=== PATIENT | female | born 1960 | race Caucasian/White ===

== ENCOUNTER 2016-05-30 15:36 | Emergency (ER) | payer OTHER ==
[~2016-05-30] VITALS: Ht 167.6 cm; Wt 88.5 kg
[~2016-05-30 15:36] MED LIST: ACET-819 PO; ALPR.25T PO; AMOX500C2 PO; ASP81TEC PO; ATRV10T PO; DIVA250T2 PO; ESCI5TAB PO; ESTROGEN; FRS325T PO; GFCD10B PO; IBP200T PO; METO25TA PO; OMEP1CAP10 PO; OMEP20CA12 PO; OMEP20CA6 PO; ONDA4TAB2 PO; TRAM50TA2 PO
--- NOTE | 2016-05-30 15:41 | ED Upper Extremity ---
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 Onset: just prior to arrival Severity: moderate Pain/Injury Location: left wrist Method of Injury: fell Modifying Factors: Worse With Movement Allergies and Home Medications Allergies Coded Allergies: oxcarbazepine (Unverified Allergy, Unknown, 08/27/10) Phenytoin Sodium Extended (Unverified Allergy, 08/22/10) Sulfa(Sulfonamide Antibiotics) (Unverified Allergy, 08/22/10) Tetracycline (Unverified Allergy, 08/22/10) phenytoin sodium (Unverified Allergy, 08/22/10) Codeine (Unverified Adverse Reaction, Intermediate, TACHYCARDIA, "MY HEART RACES", 08/27/10) Home Medications Acetaminophen 500 Mg Tablet 500 MG PO BID (Reported) Alprazolam 0.25 Mg Tablet 0.25 MG PO Q8H PRN PRN (Reported) prn anxiety Aspirin 81 Mg Tabec 81 MG PO mon, wed, frid (Reported) Atorvastatin Calcium 10 Mg Tablet 10 MG PO DAILY (Reported) Divalproex Sodium 250 Mg Tablet.dr 250 MG PO DAILY (Reported) Escitalopram Oxalate 5 Mg Tablet 5 MG PO HS (Reported) Metoprolol Succinate 25 Mg Tab.sr.24h 25 MG PO BID (Reported) Omeprazole 20 Mg Capsule.dr 20 CAP PO HS (Reported) Constitutional: see HPI EENTM: see HPI Respiratory: no symptoms reported Cardiovascular: no symptoms reported Genitourinary: no symptoms reported Musculoskeletal: see HPI joint swelling Skin: no symptoms reported Psychiatric/Neurological: No Symptoms Reported Past Tyaenhe-Ihetjn-Hoymkd Hx Seasonal Allergies Seasonal Allergies: No Surgeries HX Surgeries: Yes Respiratory Hx Respiratory Disorders: No (BENIGN LUNG NODULE) Cardiovascular Hx Cardiac Disorders: Yes (MITRAL VALVE PROLAPSE) Neurological Hx Neurological Disorders: No Reproductive System Hx Reproductive Disorders: No Sexually Transmitted Disease: No 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 History: Hysterectomy Genitourinary Hx Genitourinary Disorders: Yes Genitourinary Disorders: Kidney Stones Gastrointestinal Hx Gastrointestinal Disorders: Yes Gastrointestinal Disorders: Gastroesophageal Reflux Musculoskeletal Hx Musculoskeletal Disorders: Yes (CHRONIC PAIN IN HER FEET) Musculoskeletal Disorders: Arthritis Endocrine Hx Endocrine Disorders: No HEENT HX ENT Disorders: No Cancer Hx Cancer: No Psychosocial Hx Psychiatric Problems: No Integumentary HX Skin/Integumentary Disorder: No Blood Transfusions Hx Blood Disorders: No Family Medical History Significant Family History: Cancer Physical Exam Vital Signs Vital Sign - Last 12Hours 05/30/16 15:36 Temp 98.8 Pulse 71 Resp 18 B/P 151/79 Pulse Ox 96 O2 Delivery Room Air Capillary Refill : General Appearance: WD/WN no apparent distress HEENT: PERRL/EOMI normal ENT inspection Neck: non-tender full range of motion Respiratory: no respiratory distress no accessory muscle use Shoulder: normal inspection non-tender Elbow/Forearm: normal inspection, non-tender, Left Wrist: Yes limited ROM, Yes pain, Yes soft tissue tenderness Hand: normal inspection, non-tender, Left Neurologic/Tendon: normal sensation normal motor functions normal tendon functions Neurologic/Psychiatric: alert normal mood/affect oriented x 3 Skin: normal color warm/dry Progress/Results/Core Measures Results/Orders My Orders Orders-ELYSSA NELSON APRN Wrist, Left, 3 Views Or More (05/30/16 15:40) Vital Signs/I&O Vital Sign - Last 12Hours 05/30/16 15:36 Temp 98.8 Pulse 71 Resp 18 B/P 151/79 Pulse Ox 96 O2 Delivery Room Air Diagnostic Imaging Diagonstic Imaging: Xray Comments NAME: JENIFER KOVACS [facility] REC#: [id number] PT STATUS: REG ER : 1960 PHYSICIAN: ELYSSA NELSON APRN ADMIT DATE: 05/30/16/ER Draft Date of Exam:05/30/16 WRIST, LEFT, 3 VIEWS OR MORE INDICATION: Left wrist pain. EXAMINATION: Multiple views of the left wrist were obtained. FINDINGS: Radiocarpal joint is in good alignment. Articulating surfaces are smooth with good preservation of joint space. Carpal bones show no subluxation or fracture. The ulnar styloid is intact. IMPRESSION: Normal left wrist. Dictated on workstation # [id number] Dict: 05/30/16 1554 Trans: 05/30/16 1559 [facility] [id number] Interpreted by: GUSTAVO BOX MD Electronically signed by: Departure Impression Impression: Primary Impression: Wrist sprain Qualified Code: S63.502A - Unspecified sprain of left wrist, initial encounter Disposition: ADMITTED INPATIENT Condition: Stable Departure-Patient Inst. Decision time for Depature: 16:03 Referrals: JIM DUNLAP MD (PCP/Family) Primary Care Physician Patient Instructions: Wrist Sprain (DC) Add. Discharge Instructions: 1. Wear splint as needed for the next 2-3 days in addition to icing it, tylenol and motrin. Radiologist has reviewed your xray and it shows no fractures or dislocations. Return to ER for any worsening or follow up with your doctor next week for further evaluation if you're having persistent pain. ELYSSA NELSON APRN May 30, 2016 15:41
--- OUTSIDE RECORDS SUMMARY | 2016-05-30 15:41 | XMS REPORT | Continuity of Care Document ---
Author Author [facility] Organization [facility] Address Unknown Phone Unavailable Care Team Providers Care Supervisor [employer] Name Role Phone No Pcp, Na PCP Unavailable Source Comments Some departments are not documenting in the electronic medical record. If you do not see the information that you expected, contact Release of Information in the Health Information Management department at [phone] for further assistance in locating additional records.[facility] Active Allergies and Adverse Reactions Allergen Noted Date Severity Reactions Comments Caffeine 10/10/2014 Low SEE COMMENTS Makes the pt heart skip a beat Codeine 12/15/2002 High Allergy recorded in SMS: CODIENE~Reactions: HIVES Phenytoin Sodium Extended 12/15/2002 High Allergy recorded in SMS: Dilantin~Reactions: ANAPHYLAXIS Sulfa (Sulfonamide 12/15/2002 High Allergy recorded in SMS: Antibiotics) Sulfa~Reactions: ANAPHYLAXIS Tetracycline 12/15/2002 High Allergy recorded in SMS: TETRACYCLINE~Reactions: HIVES Current Medications Prescription Sig. Disp. Refills Start End Date Status Date metoprolol (LOPRESSOR) 50 Take 50 mg by mouth twice Active mg tablet daily. OMEPRAZOLE MAGNESIUM Take by mouth daily. Active (PRILOSEC OTC PO) escitalopram (LEXAPRO) 5 Take 5 mg by mouth daily. Active mg tablet aspirin EC 81 mg tablet Take 81 mg by mouth every Active 48 hours. ALPRAZOLAM (XANAX PO) Take by mouth as Needed. Active divalproex ER (DEPAKOTE TAKE 1 TABLET BY MOUTH 90 Tab 5 11/08/19 Active ER) 250 mg tablet THREE TIMES DAILY 16 Active Problems Not on file Social History Tobacco Use Types Packs/Day Years Used Date Never Smoker Smokeless Tobacco: Never Used Alcohol Use Drinks/Week oz/Week Comments Yes 0 Standard 0.0 rare drinks or equivalent Last Filed Vital Signs Vital Sign Reading Time Taken Blood Pressure 138/78 10/10/2014 8:26 AM CDT Pulse 63 10/10/2014 8:26 AM CDT Temperature - - Respiratory Rate - - Height 1.676 m (5' 6") 10/10/2014 8:24 AM CDT Weight 87.544 kg (193 lb) 10/10/2014 8:24 AM CDT Body Mass Index 31.17 10/10/2014 8:24 AM CDT Oxygen Saturation - - Plan of Care Date Type Specialty Providers Description 06/07/2016 Appointment Neurology Health Maintenance Due Date Last Done Comments Hepatitis C Screening 1960 Physical (Comprehensive) 1965 Exam Pertussis Vaccine 1969 Tetanus Vaccine 08/20/1975 Cervical Cancer Screening 08/20/1979 Breast Cancer Screening 1998 Colorectal Cancer 2008 Screening Influenza Vaccine 12/28/2015 Results from Last 3 Months Not on file
--- NOTE | 2016-05-30 15:59 | Diagnostic Imaging Report ---
INDICATION: Left wrist pain. EXAMINATION: Multiple views of the left wrist were obtained. FINDINGS: Radiocarpal joint is in good alignment. Articulating surfaces are smooth with good preservation of joint space. Carpal bones show no subluxation or fracture. The ulnar styloid is intact. IMPRESSION: Normal left wrist. Dictated by: Dictated on workstation # [id number]
[2016-05-30 16:23] VITALS: BP 146/79
== END 2016-05-30 16:27 | disposition home or self-care (01) ==
LOC: EDUNIT# 15:36 → ER 15:37
DX: S63.502A Unspecified sprain of left wrist, initial encounter (principal); W01.0XXA Fall on same level from slipping, tripping and stumbling without subsequent striking against object, initial encounter; Y92.59 Other trade areas as the place of occurrence of the external cause; Y99.8 Other external cause status
CPT/HCPCS: 73110; 99283

== ENCOUNTER 2017-02-17 18:02 | Emergency (ER) | payer OTHER ==
[~2017-02-17] VITALS: Ht 167.6 cm; Wt 88.5 kg
--- OUTSIDE RECORDS SUMMARY | 2017-02-17 18:07 | XMS REPORT | Clinical Summary ---
Author Author [facility] Organization [facility] Address Unknown Phone Unavailable Care Team Providers Care Manager Department Name Role Phone PCP Unavailable Source Comments Some departments are not documenting in the electronic medical record. If you do not see the information that you expected, contact Release of Information in the Health Information Management department at [phone] for further assistance in locating additional records.[facility] Allergies Active Allergy Reactions Severity Noted Date Comments Codeine High 12/15/2002 Allergy recorded in SMS: CODIENE~Reactions: HIVES Phenytoin Sodium Extended High 12/15/2002 Allergy recorded in SMS: Dilantin~Reactions: ANAPHYLAXIS Sulfa (Sulfonamide High 12/15/2002 Allergy recorded in SMS: Antibiotics) Sulfa~Reactions: ANAPHYLAXIS Tetracycline High 12/15/2002 Allergy recorded in SMS: TETRACYCLINE~Reactions: HIVES Caffeine SEE COMMENTS Low 10/10/2014 Makes the pt heart skip a beat Current Medications Prescription Sig. Disp. Refills Start [...] PO) Take by mouth as Needed. Active ATORVASTATIN CALCIUM Take 10 mg by mouth Active (LIPITOR PO) daily. Takes 1/2 tab daily divalproex ER (DEPAKOTE Take 1 Tab by mouth twice 60 Tab 5 09/12/19 Active ER) 250 mg ER tablet daily. 17 Active Problems Problem Noted Date Nonintractable generalized idiopathic epilepsy without status epilepticus ([facility]) Social History Tobacco Use Types Packs/Day Years Used Date Never Smoker Smokeless Tobacco: Never Used Alcohol Use Drinks/Week oz/Week Comments Yes 0 Standard 0.0 rare drinks or equivalent Sex Assigned at Date Recorded Not on file Last Filed Vital Signs Vital Sign Reading Time Taken Blood Pressure 137/73 06/07/2016 2:40 PM [employer] SOFTWARE [employer]INE[employer] Pulse 67 06/07/2016 2:40 PM [employer] SOFTWARE [employer] Temperature - - Respiratory Rate - - Oxygen Saturation - - Inhaled Oxygen - - Concentration Weight 90.7 kg (200 lb) 06/07/2016 2:40 PM [employer] SOFTWARE [employer] Height 167.6 cm (5' 6") 06/07/2016 2:40 PM [employer] SOFTWARE [employer] Body Mass Index 32.28 06/07/2016 2:40 PM [employer] SOFTWARE ENGINE[employer] Plan of Treatment Health Maintenance Due Date Last Done Comments HEPATITIS C SCREENING 1960 PHYSICAL (COMPREHENSIVE) 1965 EXAM PERTUSSIS VACCINE 1969 TETANUS VACCINE 08/20/1975 CERVICAL CANCER SCREENING 1988 BREAST CANCER SCREENING 1998 COLORECTAL CANCER 2008 SCREENING INFLUENZA VACCINE 11/26/2016 Results Not on filefrom Last 3 Months
--- OUTSIDE RECORDS SUMMARY | 2017-02-17 18:07 | XMS REPORT | Continuity of Care Document ---
Author Author [facility] Organization [facility] Address Unknown Phone Unavailable Allergies Active Description Code Type Severity Reaction Onset Reported/Identified Relationship to Patient Clinical Status Yes codeine [id number] Drug Allergy Moderate TACHYCARDIA, "M 08/27/2010 Yes oxcarbazepine [id number] Drug Allergy Unknown N/A 08/27/2010 Yes phenytoin sodium [id number] Drug Allergy Unknown N/A 06/07/2016 Yes Phenytoin Sodium Extended [id number] Drug Allergy Unknown N /A 06/07/2016 Yes Sulfa (Sulfonamide Antibiotics) [id number] Drug Allergy Unknown N/A 06/07/2016 Yes tetracycline [id number] Drug Allergy Unknown N/A 06/07/2016 Medications Problems Date Dx Coded Attending Type Code Diagnosis Diagnosed By 04/19/2015 LAURA TAY, FCO [place] Ot V76.12 04/19/2015 FABI TAY, JIM Sapp Ot 733.90 04/19/2015 FABI TAY, JIM Sapp Ot V58.69 04/19/2015 FABI TAY, JIM Sapp Ot V58.83 04/19/2015 LAURA TAY, FCO [place] Ot V76.12 04/19/2015 LAURA TAY, FCO [place] Ot Z12.31 05/18/2015 LAURA TAY, FCO [place] Ot Z12.31 06/13/2015 LAURA TAY, FCO [place] Ot Z12.31 06/13/2015 LAURA TAY, FCO [place] Ot V76.12 06/13/2015 FABI TAY, JIM Sapp Ot 733.90 06/13/2015 FABI TAY, JIM Sapp Ot V58.69 06/13/2015 FABI TAY, JIM Sapp Ot V58.83 06/13/2015 LAURA TAY, FCO [place] Ot V76.12 06/13/2015 LAURA TAY, FCO [place] Ot Z12.31 08/10/2015 FCO SANCHEZ MD Ot V76.12 08/10/2015 JIM DUNLAP MD Ot 733.90 08/10/2015 JIM DUNLAP MD Ot V58.69 08/10/2015 JIM DUNLAP MD Ot V58.83 08/10/2015 FCO SANCHEZ MD Ot V76.12 08/10/2015 FCO SANCHEZ MD Ot Z12.31 08/24/2015 FCO SANCHEZ MD Ot V76.12 OTH SCREEN MAMMO-MALIGN NEOPLASM OF BRITT 08/24/2015 JIM DUNLAP MD Ot 733.90 BONE CARTILAGE DIS NOS 08/24/2015 JIM DUNLAP MD, Ot V58.69 OTH MED,LT,CURRENT USE 08/24/2015 JIM DUNLAP MD Ot V58.83 ENCOUNTER FOR THERAPEUTIC DRUG MONITORIN 08/24/2015 FCO SANCHEZ MD Ot V76.12 OTH SCREEN MAMMO-MALIGN NEOPLASM OF BRITT 08/24/2015 FCO SANCHEZ MD Ot Z12.31 ENCNTR SCREEN MAMMOGRAM FOR MALIGNANT NE 10/18/2015 JIM DUNLAP MD Ot R00.2 PALPITATIONS 11/22/2015 JIM DUNLAP MD Ot R00.2 PALPITATIONS 03/27/2016 FCO SANCHEZ MD Ot V76.12 OTH SCREEN MAMMO-MALIGN NEOPLASM OF BRITT 03/27/2016 JIM DUNLAP MD Ot 733.90 BONE CARTILAGE DIS NOS 03/27/2016 JIM DUNLAP MD Ot V58.69 OTH MED,LT,CURRENT USE 03/27/2016 JIM DUNLAP MD Ot V58.83 ENCOUNTER FOR THERAPEUTIC DRUG MONITORIN 03/27/2016 FCO SANCHEZ MD Ot V76.12 OTH SCREEN MAMMO-MALIGN NEOPLASM OF BRITT 03/27/2016 FCO SANCHEZ MD Ot Z12.31 ENCNTR SCREEN MAMMOGRAM FOR MALIGNANT NE 03/27/2016 JIM DUNLAP MD Ot R00.2 PALPITATIONS 03/28/2016 FCO SANCHEZ MD Ot Z12.31 ENCNTR SCREEN MAMMOGRAM FOR MALIGNANT NE 05/30/2016 FCO SANCHEZ MD Ot V76.12 OTH SCREEN MAMMO-MALIGN NEOPLASM OF BRITT 05/30/2016 JIM DUNLAP MD Ot 733.90 BONE CARTILAGE DIS NOS 05/30/2016 JIM DUNLAP MD Ot V58.69 OTH MED,LT,CURRENT USE 05/30/2016 JIM DUNLAP MD Ot V58.83 ENCOUNTER FOR THERAPEUTIC DRUG MONITORIN 05/30/2016 FCO SANCHEZ MD Ot V76.12 OTH SCREEN MAMMO-MALIGN NEOPLASM OF BRITT 05/30/2016 FCO SANCHEZ MD Ot Z12.31 ENCNTR SCREEN MAMMOGRAM FOR MALIGNANT NE 05/30/2016 JIM DUNLAP MD Ot R00.2 PALPITATIONS 05/30/2016 FCO SANCHEZ MD, Ot Z12.31 ENCNTR SCREEN MAMMOGRAM FOR MALIGNANT NE 06/05/2016 ELYSSA NELSON APRN Ot S63.502A UNSPECIFIED SPRAIN OF LEFT WRIST, INITIA 06/05/2016 ELYSSA NELSON APRN Ot S69.92XA UNSP INJURY OF LEFT WRIST, HAND AND FING 06/05/2016 ELYSSA NELSON APRN Ot W01.0XXA FALL SAME LEV FROM SLIP/TRIP W/O STRIKE 06/05/2016 ELYSSA NELSON APRN Ot Y92.[address] 06/05/2016 ELYSSA NELSON APRN Ot Y99.8 OTHER EXTERNAL CAUSE STATUS 06/07/2016 JIM DUNLAP MD Ot R00.2 PALPITATIONS Procedures Results Encounters ACCT No. Visit Date/Time Discharge Status Pt. Type Provider Facility Loc./Unit Complaint [id number] 05/30/2016 15:37:00 2016 16:27:00 DIS Outpatient ELYSSA NELSON APRN [facility] ER LEFT WRIST PAIN FROM INJ [id number] 03/27/2016 08:32:00 2015 23:59:59 CLS Outpatient FCO SANCHEZ MD [facility] RAD SCREENING [id number] 11/23/2015 15:30:00 2015 23:59:59 CLS Preadmit JIM DUNLAP MD [facility] CARD PALPITATIONS [id number] 08/24/2015 15:02:00 2015 00:01:00 DIS Outpatient JIM DUNLAP MD [facility] CARD PALPITATIONS [id number] 03/13/2015 14:24:00 2014 23:59:59 CLS Outpatient FCO SANCHEZ MD [facility] RAD SCREENING [id number] 03/08/2014 08:41:00 2013 23:59:59 CLS Outpatient FCO SANCHEZ MD [facility] RAD SCREENING [id number] 04/23/2013 09:52:00 2012 23:59:59 CLS Outpatient JIM DUNLAP MD [facility] RAD HUMAN RESOURCES BENEFITS COORDINATOR MEDICATION USE [id number] 03/03/2013 15:08:00 2012 23:59:59 CLS Outpatient FCO SANCHEZ MD [facility] RAD SCREENING
[2017-02-17 19:48] LABS: BILIRUBIN,URINE NEGATIVE (NEGATIVE); KETONES,URINE 1+ (NEGATIVE); LEUKOCYTE ESTERASE ,URINE 3+ (NEGATIVE); NITRITE,URINE NEGATIVE (NEGATIVE); PH,URINE 6 (5-9); PROTEIN,URINE 4+ (NEGATIVE); SQUAMOUS EPITHELIAL CELL,UR 0-2 /HPF; UROBILINOGEN,URINE NORMAL (NORMAL); WBC,URINE 50-100 /HPF
[2017-02-17] MEDS ORDERED: NS IV 1000 ML 1,000 ML IV ONE (20:15)
[2017-02-17] MEDS ORDERED: cefTRIAXone INJECTION 1,000 MG in NS (IVPB) 50 ML IV ONE (20:30)
[2017-02-17 20:35] LABS: BASOPHILS % (AUTO) 0 % (0-10); EOSINOPHILS # (AUTO) 0.1 10^3/uL (0.0-0.3); EOSINOPHILS % (AUTO) 1 % (0-10); LYMPHOCYTES # (AUTO) 2.3 X 10^3 (1.0-4.0); LYMPHOCYTES % (AUTO) 17 % (12-44); MEAN CORPUSCULAR HEMOGLOBIN 30 PG (25-34); MEAN CORPUSCULAR HGB CONC 32 G/DL (32-36); MEAN CORPUSCULAR VOLUME 93 FL (80-99); MEAN PLATELET VOLUME 10.5 FL (7.4-10.4); MONOCYTES % (AUTO) 8 % (0-12); NEUTROPHILS # (AUTO) 9.8 X 10^3 (1.8-7.8); NEUTROPHILS % (AUTO) 74 % (42-75); PLATELET COUNT 229 10^3/uL (130-400); RED BLOOD COUNT 4.45 10^6/uL (4.35-5.85); RED CELL DISTRIBUTION WIDTH 13.1 % (10.0-14.5); WHITE BLOOD COUNT 13.2 10^3/uL (4.3-11.0)
[2017-02-17 20:52] LABS: ALANINE AMINOTRANSFERASE 17 U/L (0-55); ALBUMIN 4.1 GM/DL (3.2-4.5); ANION GAP 10 MMOL/L (5-14); ASPARTATE AMINO TRANSFERASE 14 U/L (5-34); BILIRUBIN,TOTAL 0.4 MG/DL (0.1-1.0); BLOOD UREA NITROGEN 13 MG/DL (7-18); BUN/CREATININE RATIO 16; CALCIUM 9.6 MG/DL (8.5-10.1); CARBON DIOXIDE 27 MMOL/L (21-32); CHLORIDE 104 MMOL/L (98-107); GFR ESTIMATED > 60; GLUCOSE 127 MG/DL (70-105); SODIUM 141 MMOL/L (135-145); TOTAL PROTEIN 7.8 GM/DL (6.4-8.2)
--- NOTE | 2017-02-17 20:57 | Diagnostic Imaging Report ---
PROCEDURE: CT urinary tract, rule out kidney stone. TECHNIQUE: Multiple contiguous axial images were obtained through the abdomen and pelvis without the use of intravenous contrast. INDICATION: Left-sided anterior posterior abdominal pain and history of stones EXAMINATION: CT abdomen and pelvis without contrast dated 02/17/2017 COMPARISONS: 03/04/2007 FINDINGS: Incompletely imaged calcifications in the right infrahilar region noted nonspecific perhaps due to a partially imaged calcified lymph node. The remaining visualized lung bases unremarkable. No acute osseous abnormality is appreciated. There is postoperative change within the pelvis. Multiple calcifications in the pelvis also noted likely all phleboliths. No stones within the bladder noted but the urinary bladder wall appears thickened which could be due to an underdistention versus cystitis. Prominence of the renal pelvis bilaterally is noted as well as prominence of the ureters bilaterally. Minimal fat stranding about the left ureter is also noted but no stones seen in either ureter. No nephrolithiasis is seen on either side. The remaining abdominal viscera limited in evaluation due to lack of IV contrast. No acute abnormality appreciated within the liver or the spleen. The liver is overall prominent in appearance but similar to previous imaging. Gallbladder contains hyperdensity likely stones without surrounding inflammation appreciated. Common duct distally is somewhat prominent in appearance but no obstructive process is seen distally. However, this would be difficult to exclude without contrast. The pancreas is grossly unremarkable. The adrenal glands normal in appearance. There is no ascites. No free air. Appendix is unremarkable. Remaining bowel loops unremarkable as well. IMPRESSION: 1. Fat stranding about the course of both ureters left worse than right with mild prominence of the renal collecting systems bilaterally but no obstructing stones visualized. Findings most likely due to pyelonephritis and possibly cystitis; correlate with symptoms and urinalysis. Recently passed stone could cause a similar appearance felt to be less likely given the bilaterality. 2. Mild prominence of the common bile duct which is nonspecific. If there is right upper quadrant pain sonographic characterization or further imaging of the ducts could be performed as clinically warranted to exclude a distal obstructive process. Cholelithiasis also noted. Other incidental findings as described above. Dictated by: Dictated on workstation # [id number]
--- NOTE | 2017-02-17 21:05 | ED GI ---
General Chief Complaint: Abdominal/GI Problems Stated Complaint: R SIDE PAIN Nursing Triage Note: INTERMITTANT LEFT SIDED LOWER ABDOMINAL PAIN RADIATING TO LEFT LOWER BACK Sepsis Screen: No Definite Risk Source of Information: Patient Exam Limitations: No Limitations History of Present Illness Time Seen By Provider: 19:34 Initial Comments This 56-year-old woman presents to the emergency room with pain and pressure intermittently in the pelvic region for years. This pain has typically improved with bowel movements. The last episode she had before today was in November. Today she developed this similar pain but also had pain in the left flank. The pain is very intense when it was present but is now gone. She has significant malaise yesterday as well. She denies any fever. She has had dysuria without hematuria. She also complains of urgency. Around the time she had the most intense pain, she urinated in the shower to help alleviate the pressure. She reports a black object was in her urine and she wonders if she passed a kidney stone. She does have a history of kidney stones in the past. Allergies and Home Medications Allergies Coded Allergies: Phenytoin Sodium Extended (Unverified Allergy, Unknown, 06/07/16) Sulfa (Sulfonamide Antibiotics) (Unverified Allergy, Unknown, 06/07/16) oxcarbazepine (Unverified Allergy, Unknown, 08/27/10) phenytoin sodium (Unverified Allergy, Unknown, 06/07/16) tetracycline (Unverified Allergy, Unknown, 06/07/16) codeine (Unverified Adverse Reaction, Intermediate, TACHYCARDIA, "MY HEART RACES", 08/27/10) Home Medications Ciprofloxacin HCl 500 Mg Tablet, 500 MG PO BID, #20 Prescribed by: MEL CISNEROS on 02/17/172118 Phenazopyridine HCl 200 Mg Tablet, 1 TAB PO TID PRN for PAIN-MILD TO MODERATE, # 10 Prescribed by: MEL CISNEROS on 02/17/172118 Review of Systems Constitutional: no symptoms reported EENTM: No Symptoms Reported Respiratory: No Symptoms Reported Cardiovascular: No Symptoms Reported Gastrointestinal: See HPI Genitourinary: See HPI Musculoskeletal: no symptoms reported Skin: no symptoms reported Psychiatric/Neurological: No Symptoms Reported Endocrine: No Symptoms Reported Past Zypymcz-Rtzwir-Hobvnh Hx Patient Social History Alcohol Use: Denies Use Recreational Drug Use: No Smoking Status: Never a Smoker 2nd Hand Smoke Exposure: No Recent Foreign Travel: No Contact w/Someone Who Travel: No Recent Infectious Disease Expo: No Recent Hopitalizations: No Immunizations Up To Date Tetanus Booster (TDap): Unknown Seasonal Allergies Seasonal Allergies: No Surgeries History of Surgeries: Yes Surgeries: Bladder Surgery (sling), Hysterectomy, Tonsillectomy Respiratory History of Respiratory Disorde: Yes (BENIGN LUNG NODULE) Cardiovascular History of Cardiac Disorders: Yes (MITRAL VALVE PROLAPSE) Cardiac Disorders: Hypertension Neurological History of Neurological Disord: No Reproductive System : No Hx Reproductive Disorders: No Sexually Transmitted Disease: No 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 Genitourinary History of Genitourinary Disor: Yes Genitourinary Disorders: Kidney Stones Gastrointestinal History of Gastrointestinal Di: Yes Gastrointestinal Disorders: Gastroesophageal Reflux Musculoskeletal History of Musculoskeletal Dis: Yes (CHRONIC PAIN IN HER FEET) Musculoskeletal Disorders: Arthritis Endocrine History of Endocrine Disorders: No HEENT History of HEENT Disorders: No Cancer History of Cancer: No Psychosocial History of Psychiatric Problem: Yes Behavioral Health Disorders: Depression Integumentary History of Skin or Integumenta: No Blood Transfusions History of Blood Disorders: No Family Medical History Significant Family History: Cancer Physical Exam Vital Signs VS - Last 72 Hours, by Label 02/17/17 02/17/17 19:19 21:26 Temp 99.1 98.1 Pulse 75 71 Resp 16 16 B/P (MAP) 187/97 Pulse Ox 97 98 O2 Delivery Room Air Room Air Capillary Refill : Less Than 3 Seconds General Appearance: WD/WN, no apparent distress HEENT: PERRL/EOMI, normal ENT inspection Neck: normal inspection Respiratory: lungs clear, normal breath sounds, no respiratory distress, no accessory muscle use Cardiovascular: regular rate, rhythm, no edema, no murmur Gastrointestinal: normal bowel sounds, soft, tenderness (suprapubic) Extremities: normal inspection, no pedal edema Back: normal inspection 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/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 nml as tested, no motor/sensory deficits, alert, normal mood/affect, oriented x 3 Skin: normal color, warm/dry Progress/Results/Core Measures Results/Orders Lab Results Laboratory Tests Test 02/17/17 19:33 02/17/17 20:25 Range/Units Urine Color YELLOW Urine Clarity CLOUDY H Urine pH 6 5-9 Urine Specific [place] 1.025 H 1.016-1.022 Urine Protein 4+ NEGATIVE Urine Glucose (UA) NEGATIVE NEGATIVE Urine Ketones 1+ H NEGATIVE Urine Nitrite NEGATIVE NEGATIVE Urine Bilirubin NEGATIVE NEGATIVE Urine Urobilinogen NORMAL NORMAL MG/DL Urine Leukocyte Esterase 3+ H NEGATIVE Urine RBC (Auto) 5+ H NEGATIVE Urine RBC 25-50 H /HPF Urine WBC 50-100 H /HPF Urine Squamous Epithelial Cells 0-2 /HPF Urine Crystals NONE /LPF Urine Bacteria FEW H /HPF Urine Casts NONE /LPF Urine Mucus NEGATIVE /LPF Urine Culture Indicated YES White Blood Count 13.2 H 4.3-11.0 10^3/uL Red Blood Count 4.45 4.35-5.85 10^6/uL Hemoglobin 13.3 11.5-16.0 G/DL Hematocrit 42 35-52 % Mean Corpuscular Volume 93 80-99 FL Mean Corpuscular Hemoglobin 30 25-34 PG Mean Corpuscular Hemoglobin Concent 32 32-36 G/DL Red Cell Distribution Width 13.1 10.0-14.5 % Platelet Count 229 130-400 10^3/uL Mean Platelet Volume 10.5 H 7.4-10.4 FL Neutrophils (%) (Auto) 74 42-75 % Lymphocytes (%) (Auto) 17 12-44 % Monocytes (%) (Auto) 8 0-12 % Eosinophils (%) (Auto) 1 0-10 % Basophils (%) (Auto) 0 0-10 % Neutrophils # (Auto) 9.8 H 1.8-7.8 X 10^3 Lymphocytes # (Auto) 2.3 1.0-4.0 X 10^3 Monocytes # (Auto) 1.0 0.0-1.0 X 10^3 Eosinophils # (Auto) 0.1 0.0-0.3 10^3/uL Basophils # (Auto) 0.0 0.0-0.1 10^3/uL Sodium Level 141 135-145 MMOL/L Potassium Level 4.0 3.6-5.0 MMOL/L Chloride Level 104 98-107 MMOL/L Carbon Dioxide Level 27 21-32 MMOL/L Anion Gap 10 5-14 MMOL/L Blood Urea Nitrogen 13 7-18 MG/DL Creatinine 0.80 0.60-1.30 MG/DL Estimat Glomerular Filtration Rate > 60 BUN/Creatinine Ratio 16 Glucose Level 127 H 70-105 MG/DL Calcium Level 9.6 8.5-10.1 MG/DL Total Bilirubin 0.4 0.1-1.0 MG/DL Aspartate Amino Transf (AST/SGOT) 14 5-34 U/L Alanine Aminotransferase (ALT/SGPT) 17 0-55 U/L Alkaline Phosphatase 100 40-136 U/L Total Protein 7.8 6.4-8.2 GM/DL Albumin 4.1 3.2-4.5 GM/DL My Orders Orders - MEL LIU MD Ua Culture If Indicated (02/17/17 19:33) Urine Culture (02/17/17 19:33) Cbc With Automated Diff (02/17/17 20:15) Comprehensive Metabolic Panel (02/17/17 20:15) Ct Abd/Pelvis Wo(Kidney Stone) (02/17/17 20:15) Saline Lock/Iv-Start (02/17/17 20:15) Ns Iv 1000 Ml (Sodium Chloride 0.9%) (02/17/17 20:15) Ceftriaxone Injection (Rocephin Injectio (02/17/17 20:30) Ketorolac Injection (Toradol Injection) (02/17/17 21:15) Phenazopyridine Tablet (Pyridium Tablet) (02/17/17 21:15) Medications Given in ED Current Medications Medications Dose Ordered Sig/Michelle Route Start Time Stop Time Status Last Admin Dose Admin Ceftriaxone Sodium 1000 mg/ Sodium Chloride 50 ml @ 100 mls/hr ONCE ONCE IV 02/17/17 20:30 02/17/17 20:59 DC 02/17/17 20:29 100 MLS/HR Ketorolac Tromethamine 30 mg ONCE ONCE IVP 02/17/17 21:15 02/17/17 21:16 DC 02/17/17 21:18 30 MG Phenazopyridine HCl 200 mg ONCE ONCE PO 02/17/17 21:15 02/17/17 21:16 DC 02/17/17 21:17 200 MG Sodium Chloride 1,000 ml @ 0 mls/hr Q0M ONCE IV 02/17/17 20:15 02/17/17 20:19 DC 02/17/17 20:29 0 MLS/HR Vital Signs/I&O Vital Sign - Last 12Hours 02/17/17 02/17/17 19:19 21:26 Temp 99.1 98.1 Pulse 75 71 Resp 16 16 B/P (MAP) 187/97 Pulse Ox 97 98 O2 Delivery Room Air Room Air Blood Pressure Mean: 127 Progress Note : Progress Note UA was checked and evidence of urinary tract infection with hematuria was noted. Given patient's history, labs and imaging were felt appropriate. Labs were ordered and mild leukocytosis was noted. CT showed evidence of inflammatory changes around the ureters bilaterally as well as some mild ureteral dilatation. A passed ureteral stone versus pyelonephritis was suggested. Patient was treated with IV fluids and Rocephin. Toradol was administered prior to dismissal. We discussed admission versus discharge home with close observation. Patient wishes to be dismissed home and commits to returning if symptoms worsen. She is an established patient of Dr. Isabel and will follow-up with him. Diagnostic Imaging Diagonstic Imaging: CT Plain Films/CT/US/NM/MRI: abdomen, pelvis Comments CT abdomen and pelvis viewed by me and report reviewed. See report below: NAME: JENIFER KOVACS [facility] REC#: [id number] PT STATUS: REG ER : 1960 PHYSICIAN: MEL LIU MD ADMIT DATE: 02/17/17/ER Draft Date of Exam:02/17/17 CT ABD/PELVIS WO(KIDNEY STONE) PROCEDURE: CT urinary tract, rule out kidney stone. TECHNIQUE: Multiple contiguous axial images were obtained through the abdomen and pelvis without the use of intravenous contrast. INDICATION: Left-sided anterior posterior abdominal pain and history of stones EXAMINATION: CT abdomen and pelvis without contrast dated 02/17/2017 COMPARISONS: 03/04/2007 FINDINGS: Incompletely imaged calcifications in the right infrahilar region noted nonspecific perhaps due to a partially imaged calcified lymph node. The remaining visualized lung bases unremarkable. No acute osseous abnormality is appreciated. There is postoperative change within the pelvis. Multiple calcifications in the pelvis also noted likely all phleboliths. No stones within the bladder noted but the urinary bladder wall appears thickened which could be due to an underdistention versus cystitis. Prominence of the renal pelvis bilaterally is noted as well as prominence of the ureters bilaterally. Minimal fat stranding about the left ureter is also noted but no stones seen in either ureter. No nephrolithiasis is seen on either side. The remaining abdominal viscera limited in evaluation due to lack of IV contrast. No acute abnormality appreciated within the liver or the spleen. The liver is overall prominent in appearance but similar to previous imaging. Gallbladder contains hyperdensity likely stones without surrounding inflammation appreciated. Common duct distally is somewhat prominent in appearance but no obstructive process is seen distally. However, this would be difficult to exclude without contrast. The pancreas is grossly unremarkable. The adrenal glands normal in appearance. There is no ascites. No free air. Appendix is unremarkable. Remaining bowel loops unremarkable as well. IMPRESSION: 1. Fat stranding about the course of both ureters left worse than right with mild prominence of the renal collecting systems bilaterally but no obstructing stones visualized. Findings most likely due to pyelonephritis and possibly cystitis; correlate with symptoms and urinalysis. Recently passed stone could cause a similar appearance felt to be less likely given the bilaterality. 2. Mild prominence of the common bile duct which is nonspecific. If there is right upper quadrant pain sonographic characterization or further imaging of the ducts could be performed as clinically warranted to exclude a distal obstructive process. Cholelithiasis also noted. Other incidental findings as described above. Dictated on workstation # [id number] Dict: 02/17/172044 Trans: 02/17/172055 [facility] [id number] Interpreted by: DENVER HARPER MD Departure Impression Impression: Primary Impression: Pyelonephritis Additional Impression: Cholelithiasis Qualified Codes: K80.20 - Calculus of gallbladder without cholecystitis without obstruction Disposition: 01 HOME, SELF-CARE Condition: Improved Departure-Patient Inst. Decision time for Depature: 21:14 Referrals: JIM DUNLAP MD (PCP/Family) Primary Care Physician Patient Instructions: NO INSTRUCTIONS GIVEN Add. Discharge Instructions: Drink plenty of clear liquids to help flush out your urinary tract. Please complete your antibiotics as prescribed. Follow-up with Dr. Isabel and/or your primary care provider in the next few days. Have them review the results of your urine culture to ensure your antibiotic therapy is appropriate for the infection you have. Starting tomorrow morning you may take ibuprofen up to 600 mg every 6 hours as needed for pain. You may add Tylenol (acetaminophen) up to 1000 mg every 6 hours as needed for additional pain relief. Return to the ER if symptoms worsen, especially if you have fevers over 100. All discharge instructions reviewed with patient and/or family. Voiced understanding. Scripts Phenazopyridine HCl (Pyridium) 200 Mg Tablet 1 TAB PO TID Y for PAIN-MILD TO MODERATE, #10 TAB Prov: MEL LIU MD 02/17/17 Ciprofloxacin HCl (Cipro) 500 Mg Tablet 500 MG PO BID, #20 TAB Prov: MEL LIU MD 02/17/17 MEL LIU MD Feb 17, 2017 21:05
[2017-02-17] MEDS ORDERED: PHENAZOPYRIDINE 100 MG (PYRIDIUM) TABLET PO ONE (21:15)
[2017-02-17] MEDS ORDERED: KETOROLAC 30 MG/ML VIAL IVP ONE (21:15)
[2017-02-17] MEDS ORDERED: CIPR-225 PO (21:19)
[2017-02-17] MEDS ORDERED: PHEN-640 PO (21:19)
[2017-02-17 21:26] VITALS: BP 170/86
== END 2017-02-17 21:23 | disposition home or self-care (01) ==
LOC: EDUNIT# 18:02 → ER 18:03
DX: N12 Tubulo-interstitial nephritis, not specified as acute or chronic (principal); K80.20 Calculus of gallbladder without cholecystitis without obstruction; F32.9 Major depressive disorder, single episode, unspecified; K21.9 Gastro-esophageal reflux disease without esophagitis; I10 Essential (primary) hypertension; Z90.89 Acquired absence of other organs; Z87.442 Personal history of urinary calculi; Z90.710 Acquired absence of both cervix and uterus
CPT/HCPCS: 36415; 74176; 80053; 81000; 85025; 87077; 87088; 87186; 96361; 96365; 96375

== ENCOUNTER → 2017-03-26 | Outpatient (CLI) | payer OTHER ==
[~2017-03-26] MED LIST changes: +CIPR-225 PO; +PHEN-640 PO
--- NOTE | 2017-03-26 12:21 | Diagnostic Imaging Report ---
PROCEDURE: CT urinary tract, rule out kidney stone. TECHNIQUE: Multiple contiguous axial images were obtained through the abdomen and pelvis without the use of intravenous contrast. INDICATION: Recent renal infection, history of nephrolithiasis. COMPARISON: The exam compared with study dated 02/17/2017. FINDINGS: There has been interval resolution of previous urothelial thickening and periureteric edema as well as resolution of bladder wall thickening. No pericystic edema. No fluid collection. There are no opaque kidney stones and there is no hydronephrosis. No perinephric edema. There is cholelithiasis without secondary findings of cholecystitis. The pancreas, adrenals and spleen negative. The aorta is nonaneurysmal. The appendix visualized and normal. There is no diverticulitis. There is no ascites, abscess, hematoma or fluid collection. IMPRESSION: Resolution of bladder wall thickening, resolution of periureteric edema and urothelial thickening. No stone, hydronephrosis or adverse interval development. Dictated by: Dictated on workstation # [id number]
== END ==
LOC: RAD 10:28
PROVIDERS: ATTEND Internal Medicine
DX: N32.89 Other specified disorders of bladder (principal); Z87.442 Personal history of urinary calculi
CPT/HCPCS: 74176

== ENCOUNTER → 2017-04-02 | Outpatient (CLI) | payer OTHER ==
--- NOTE | 2017-04-03 19:06 | Diagnostic Imaging Report ---
Bilateral screening mammogram 2D views with tomosynthesis The current study was also evaluated with a Computer Aided Detection (CAD) system. Indication: Screening. No current complaints stated on the questionnaire. COMPARISON: 03/27/2016. FINDINGS: The breasts are composed of heterogenously dense parenchyma which may decrease mammographic sensitivity. No mass, architectural distortion or suspicious cluster of calcification has developed from the previous exam. Stable benign-appearing intramammary lymph node in the upper outer aspect of the right breast is seen. Allowing for technique and positional differences, no suspicious change is seen. IMPRESSION: No significant change. ACR BI-RADS Category 2: Benign findings. Result letter will be mailed to the patient. Note: At least 10% of breast cancer is not imaged by mammography. Dictated by: Dictated on workstation # [id number]
== END ==
LOC: RAD 08:26
PROVIDERS: ATTEND Obstetrics & Gynecology
DX: Z12.31 Encounter for screening mammogram for malignant neoplasm of breast (principal)

== ENCOUNTER 2017-06-09 13:25 | Emergency (ER) | payer OTHER ==
[~2017-06-09] VITALS: Ht 167.6 cm; Wt 89.4 kg
--- NOTE | 2017-06-09 14:13 | Diagnostic Imaging Report ---
INDICATION: Fall with injury to the right wrist. TIME OF EXAMINATION: 1:48 PM. TECHNIQUE: Three views of the right wrist were obtained. FINDINGS: The distal radius and ulna are intact. There is an osseous density noted along the dorsum of the wrist on the lateral view which can be seen with triquetral fractures. This does appear to be fairly well-corticated and acuity of this fracture is indeterminate. The remaining carpal bones appear intact. There are some degenerative changes of the triscaphe joint. The visualized metacarpals are intact. IMPRESSION: Age indeterminate triquetral fracture. No other significant abnormality is seen. Dictated by: Dictated on workstation # [id number]
[2017-06-09] MEDS ORDERED: HYDROcodone/APAP 5 MG/325 MG (LORTAB) TAB PO STA (14:19)
[2017-06-09] MEDS ORDERED: ACHD5005 PO (14:23)
[2017-06-09] MEDS ORDERED: ACETAMINOPHEN 500 MG TAB (TYLENOL) PO STA (14:26)
[2017-06-09] MEDS ORDERED: TRAM50TA2 PO (14:26)
--- NOTE | 2017-06-09 14:26 | ED Upper Extremity ---
General Chief Complaint: Upper Extremity Stated Complaint: FALL/RIGHT WRIST INJURY Nursing Triage Note: Pt c/o R wrist pain after falling on the ice Nursing Sepsis Screen: No Definite Risk Source: patient Exam Limitations: no limitations History of Present Illness Date Seen by Provider: Jun 09, 2017 Time Seen by Provider: 14:21 Allergies and Home Medications Allergies Coded Allergies: Phenytoin Sodium Extended (Unverified Allergy, Unknown, 06/07/16) Sulfa (Sulfonamide Antibiotics) (Unverified Allergy, Unknown, 06/07/16) oxcarbazepine (Unverified Allergy, Unknown, 08/27/10) phenytoin sodium (Unverified Allergy, Unknown, 06/07/16) tetracycline (Unverified Allergy, Unknown, 06/07/16) codeine (Unverified Adverse Reaction, Intermediate, TACHYCARDIA, "MY HEART RACES", 08/27/10) Home Medications Ciprofloxacin HCl 500 Mg Tablet, 500 MG PO BID, #20 Prescribed by: MEL CISNEROS on 02/17/172118 Phenazopyridine HCl 200 Mg Tablet, 1 TAB PO TID PRN for PAIN-MILD TO MODERATE, # 10 Prescribed by: MEL CISNEROS on 02/17/179 Past Pxgvckv-Mrkqev-Cbtbmm Hx Patient Social History 2nd Hand Smoke Exposure: No Recent Foreign Travel: No Contact w/Someone Who Travel: No Recent Infectious Disease Expo: No Recent Hopitalizations: No Immunizations Up To Date Tetanus Booster (TDap): Unknown Seasonal Allergies Seasonal Allergies: No Surgeries History of Surgeries: Yes Surgeries: Bladder Surgery, Hysterectomy, Tonsillectomy Respiratory History of Respiratory Disorde: Yes (BENIGN LUNG NODULE) Cardiovascular History of Cardiac Disorders: Yes (MITRAL VALVE PROLAPSE) Cardiac Disorders: Hypertension Neurological History of Neurological Disord: No Reproductive System Hx Reproductive Disorders: No Sexually Transmitted Disease: 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 Genitourinary History of Genitourinary Disor: Yes Genitourinary Disorders: Kidney Stones Gastrointestinal History of Gastrointestinal Di: Yes Gastrointestinal Disorders: Gastroesophageal Reflux Musculoskeletal History of Musculoskeletal Dis: Yes (CHRONIC PAIN IN HER FEET) Musculoskeletal Disorders: Arthritis Endocrine History of Endocrine Disorders: No HEENT History of HEENT Disorders: No Cancer History of Cancer: No Psychosocial History of Psychiatric Problem: Yes Behavioral Health Disorders: Depression Integumentary History of Skin or Integumenta: No Blood Transfusions History of Blood Disorders: No Family Medical History Significant Family History: Cancer Physical Exam Vital Signs Vital Signs - First Documented 06/09/17 13:37 Temp 97.4 Pulse 65 Resp 18 B/P (MAP) 160/81 (107) Pulse Ox 97 O2 Delivery Room Air Capillary Refill : Less Than 3 Seconds Progress/Results/Core Measures Results/Orders My Orders Orders - TAMARA ALEMAN Hydrocodone/Apap 5/325 Tablet (Lortab 5 (06/09/17 14:19) Vital Signs/I&O Vital Sign - Last 12Hours 06/09/17 13:37 Temp 97.4 Pulse 65 Resp 18 B/P (MAP) 160/81 (107) Pulse Ox 97 O2 Delivery Room Air Blood Pressure Mean: 107 Diagnostic Imaging Diagonstic Imaging: Xray Plain Films/CT/US/NM/MRI: other (wrist) Comments WRIST, RIGHT, 3 VIEWS OR MORE INDICATION: Fall with injury to the right wrist. TIME OF EXAMINATION: 1:48 PM. TECHNIQUE: Three views of the right wrist were obtained. FINDINGS: The distal radius and ulna are intact. There is an osseous density noted along the dorsum of the wrist on the lateral view which can be seen with triquetral fractures. This does appear to be fairly well-corticated and acuity of this fracture is indeterminate. The remaining carpal bones appear intact. There are some degenerative changes of the triscaphe joint. The visualized metacarpals are intact. IMPRESSION: Age indeterminate triquetral fracture. No other significant abnormality is seen. Dictated on workstation # [id number] Reviewed: Reviewed by Me (radiology report reviewed by me) Departure Impression Impression: Primary Impression: Triquetral fracture Qualified Codes: S62.114A - Nondisplaced fracture of triquetrum [cuneiform] bone, right wrist, initial encounter for closed fracture Disposition: 01 HOME, SELF-CARE Condition: Improved Departure-Patient Inst. Decision time for Depature: 14:22 Referrals: JIM DUNLAP MD (PCP/Family) Primary Care Physician Patient Instructions: Wrist Fracture (DC) Add. Discharge Instructions: All discharge instructions reviewed with patient and/or family. Voiced understanding. Medications as instructed. No ibuprofen or Aleve. Wrist splint as instructed. Elevate the right wrist on pillows. Ice pack for 20 minute intervals as needed for pain and swelling. Left hand activities only until released by Dr. Mo. Follow-up with Dr. Mo as an outpatient within the next 7 days for recheck. Call his office today for appointment time. Return in the emergency department for worsened pain, numbness, weakness, or any other concerns. Scripts Tramadol HCl (Tramadol HCl) 50 Mg Tablet 50 MG PO Q4H Y for PAIN-MODERATE TO SEVERE, #30 TAB 0 Refills Prov: TAMARA ALEMAN 06/09/17 Work/School Note: Work Release Form Date Seen in the Emergency Department: Jun 09, 2017 Return to Work: Jun 10, 2017 Other Restrictions Listed Below: left hand activities only until released by Dr. Mo. TAMARA ALEMAN Jun 09, 2017 14:26
[2017-06-09 14:39] VITALS: BP 160/81
--- OUTSIDE RECORDS SUMMARY | 2017-06-12 12:33 | XMS REPORT | Continuity of Care Document ---
Author Author [facility] Organization [facility] Address Unknown Phone Unavailable Allergies Active Description Code Type Severity Reaction Onset Reported/Identified Relationship to Patient Clinical Status Yes codeine [id number] Drug Allergy Moderate TACHYCARDIA, "M 08/27/2010 Yes oxcarbazepine [id number] Drug Allergy Unknown N/A 08/27/2010 Yes phenytoin sodium [id number] Drug Allergy Unknown N/A 06/07/2016 Yes Phenytoin Sodium Extended [id number] Drug Allergy Unknown N/A 06/07/2016 Yes Sulfa (Sulfonamide Antibiotics) [id number] Drug Allergy Unknown N/A 2016 Yes tetracycline [id number] Drug Allergy Unknown N/A 06/07/2016 Medications There is no data. Problems Date Dx Coded Attending Type Code [...] DUNLAP MD Ot 733.90 08/10/2015 JIM DUNLAP MD, Ot V58.69 08/10/2015 JIM DUNLAP MD, Ot V58.83 08/10/2015 FCO SANCHEZ MD, Ot V76.12 08/10/2015 FCO SANCHEZ MD, Ot Z12.31 08/24/2015 FCO SANCHEZ MD, Ot V76.12 OTH SCREEN MAMMO-MALIGN NEOPLASM OF [...] ENCNTR SCREEN MAMMOGRAM FOR MALIGNANT NE 05/30/2016 ELYSSA NELSON FARMWORKER FRUIT Ot S63.502A UNSPECIFIED SPRAIN OF LEFT WRIST, INITIA 05/30/2016 ELYSSA NELSON APRN Ot S69.92XA UNSP INJURY OF LEFT WRIST, HAND AND FING 05/30/2016 ELYSSA NELSON APRN Ot W01.0XXA FALL SAME LEV FROM SLIP/TRIP W/O STRIKE 05/30/2016 ELYSSA NELSON APRN Ot Y92.[address] 05/30/2016 ELYSSA NELSON APRN Ot Y99.8 OTHER EXTERNAL CAUSE STATUS 05/30/2016 FCO SANCHEZ MD Ot V76.12 OTH SCREEN MAMMO-MALIGN NEOPLASM OF BRITT 05/30/2016 FABI TAY, JIM Sapp Ot 733.90 BONE CARTILAGE DIS NOS 05/30/2016 JIM DUNLAP MD Ot V58.69 OTH MED,LT,CURRENT USE 05/30/2016 JIM DUNLAP MD Ot V58.83 ENCOUNTER FOR THERAPEUTIC DRUG MONITORIN 05/30/2016 FCO SANCHEZ MD Ot V76.12 OTH SCREEN MAMMO-MALIGN NEOPLASM OF BRITT 05/30/2016 FCO SANCHEZ MD Ot Z12.31 ENCNTR SCREEN MAMMOGRAM FOR MALIGNANT NE 05/30/2016 JIM DUNLAP MD Ot R00.2 PALPITATIONS 05/30/2016 FCO SANCHEZ MD Ot Z12.31 ENCNTR [...] 06/07/2016 JIM DUNLAP MD Ot R00.2 PALPITATIONS 02/17/2017 NOE TAY, MEL Vizcaino Ot F32.9 MAJOR DEPRESSIVE DISORDER, SINGLE EPISOD 02/17/2017 MEL LIU MD, Ot I10 ESSENTIAL (PRIMARY) HYPERTENSION 02/17/2017 MEL LIU MD, Ot K21.9 GASTRO-ESOPHAGEAL REFLUX DISEASE WITHOUT 02/17/2017 MEL LIU MD, Ot K80.20 CALCULUS OF GALLBLADDER W/O CHOLECYSTITI 02/17/2017 MEL LIU MD, Ot N12 TUBULO-INTERSTITIAL NEPHRITIS, NOT SPCF 02/17/2017 MEL LIU MD Ot R10.32 LEFT LOWER QUADRANT PAIN 02/17/2017 MEL LIU MD, Ot Z87.442 PERSONAL HISTORY OF URINARY CALCULI 02/17/2017 MEL LIU MD, Ot Z90.710 ACQUIRED ABSENCE OF BOTH CERVIX AND UTER 02/17/2017 MEL LIU MD, Ot Z90.89 ACQUIRED ABSENCE OF OTHER ORGANS 02/17/2017 FCO SANCHEZ MD, Ot V76.12 OTH SCREEN MAMMO-MALIGN NEOPLASM OF BRITT 02/17/2017 JIM DUNLAP MD Ot 733.90 BONE CARTILAGE DIS NOS 02/17/2017 JIM DUNLAP MD, Ot V58.69 OTH MED,LT,CURRENT USE 02/17/2017 JIM DUNLAP MD, Ot V58.83 ENCOUNTER FOR THERAPEUTIC DRUG MONITORIN 02/17/2017 FCO SANCHEZ MD, Ot V76.12 OTH SCREEN MAMMO-MALIGN NEOPLASM OF BRITT 02/17/2017 FCO SANCHEZ MD, Ot Z12.31 ENCNTR SCREEN MAMMOGRAM FOR MALIGNANT NE 02/17/2017 JIM DUNLAP MD Ot R00.2 PALPITATIONS 02/17/2017 FCO SANCHEZ MD, Ot Z12.31 ENCNTR SCREEN MAMMOGRAM FOR MALIGNANT NE 02/19/2017 MEL LIU MD Ot F32.9 MAJOR DEPRESSIVE DISORDER, SINGLE EPISOD 02/19/2017 MEL LIU MD Ot I10 ESSENTIAL (PRIMARY) HYPERTENSION 02/19/2017 MEL LIU MD Ot K21.9 GASTRO-ESOPHAGEAL REFLUX DISEASE WITHOUT 02/19/2017 MEL LIU MD Ot K80.20 CALCULUS OF GALLBLADDER W/O CHOLECYSTITI 02/19/2017 MEL LIU MD, Ot N12 TUBULO-INTERSTITIAL NEPHRITIS, NOT SPCF 02/19/2017 MEL LIU MD, Ot R10.32 LEFT LOWER QUADRANT PAIN 02/19/2017 MEL LIU MD, Ot Z87.442 PERSONAL HISTORY OF URINARY CALCULI 02/19/2017 MEL LIU MD, Ot Z90.710 ACQUIRED ABSENCE OF BOTH CERVIX AND UTER 02/19/2017 MEL LIU MD, Ot Z90.89 ACQUIRED ABSENCE OF OTHER ORGANS 03/25/2017 FCO SANCHEZ MD, Ot V76.12 OTH SCREEN MAMMO-MALIGN NEOPLASM OF BRITT 03/25/2017 JIM DUNLAP MD, Ot 733.90 BONE CARTILAGE DIS NOS 03/25/2017 JIM DUNLAP MD, Ot V58.69 OTH MED,LT,CURRENT USE 03/25/2017 JIM DUNLAP MD, Ot V58.83 ENCOUNTER FOR THERAPEUTIC DRUG MONITORIN 03/25/2017 FCO SANCHEZ MD, Ot V76.12 OTH SCREEN MAMMO-MALIGN NEOPLASM OF BRITT 03/25/2017 FCO SANCHEZ MD, Ot Z12.31 ENCNTR SCREEN MAMMOGRAM FOR MALIGNANT NE 03/25/2017 JIM DUNLAP MD, Ot R00.2 PALPITATIONS 03/25/2017 FCO SANCHEZ MD, Ot Z12.31 ENCNTR SCREEN MAMMOGRAM FOR MALIGNANT NE 05/02/2017 JIM DUNLAP MD, Ot N32.89 OTHER SPECIFIED DISORDERS OF BLADDER 05/02/2017 JIM DUNLAP MD, Ot Z87.442 PERSONAL HISTORY OF URINARY CALCULI 05/02/2017 FCO SANCHEZ MD, Ot Z12.31 ENCNTR SCREEN MAMMOGRAM FOR MALIGNANT NE Procedures There is no data. Results Test Result Range Complete urinalysis with reflex to culture - 02/17/17 19:33 Urine color determination YELLOW NRG Urine clarity determination CLOUDY NRG Urine pH measurement by test strip 6 5-9 Specific gravity of urine by test strip 1.025 1.016- 1.022 Urine protein assay by test strip, semi-quantitative 4+ NEGATIVE Urine glucose detection by automated test strip NEGATIVE NEGATIVE Erythrocytes detection in urine sediment by light microscopy 5+ NEGATIVE Urine ketones detection by automated test strip 1+ NEGATIVE Urine nitrite detection by test strip NEGATIVE NEGATIVE Urine total bilirubin detection by test strip NEGATIVE NEGATIVE Urine urobilinogen measurement by automated test strip (mass/volume) NORMAL NORMAL Urine leukocyte esterase detection by dipstick 3+ NEGATIVE Automated urine sediment erythrocyte count by microscopy (number/high power field) [HPF] NRG Automated urine sediment leukocyte count by microscopy (number/high power field ) [HPF] NRG Bacteria detection in urine sediment by light microscopy FEW NRG Squamous epithelial cells detection in urine sediment by light microscopy 0-2 NRG Crystals detection in urine sediment by light microscopy NONE NRG Casts detection in urine sediment by light microscopy NONE NRG Mucus detection in urine sediment by light microscopy NEGATIVE NRG Complete urinalysis with reflex to culture YES NRG Bacterial urine culture - 02/17/17 19:33 Bacterial urine culture [id number] NRG COLONY COUNT >100,000/ML NRG FTX;REPORTABLE SENSITIVITY REPORTED 02/19 09:15 NRG Bacterial susceptibility panel - 02/17/17 19:33 Gentamicin susceptibility test by minimum inhibitory concentration < = NRG Trimethoprim/sulfamethoxazole susceptibility test by minimum inhibitoryconcentration <= NRG Ampicillin susceptibility test by minimum inhibitory concentration < = NRG Tobramycin susceptibility test by minimum inhibitory concentration < = NRG Cefazolin susceptibility test by minimum inhibitory concentration < = NRG Ceftriaxone susceptibility test by minimum inhibitory concentration <= NRG Ampicillin/sulbactam susceptibility test by minimum inhibitory concentration <= NRG Piperacillin/tazobactam susceptibility test by minimum inhibitory concentration <= NRG Ciprofloxacin susceptibility test by minimum inhibitory concentration <= NRG Meropenem susceptibility test by minimum inhibitory concentration < = NRG Nitrofurantoin susceptibility test by minimum inhibitory concentration 128 NRG Aztreonam susceptibility test by minimum inhibitory concentration < = NRG Complete blood count (CBC) with automated white blood cell (WBC) differential - 02/17/17 20:25 Blood leukocytes automated count (number/volume) 13.2 10*3/uL 4.3-11.0 Blood erythrocytes automated count (number/volume) 4.45 10*6/uL 4.35-5.85 Venous blood hemoglobin measurement (mass/volume) 13.3 g/dL 11.5-16.0 Blood hematocrit (volume fraction) 42 % 35-52 Automated erythrocyte mean corpuscular volume 93 [foz_us] 80-99 Automated erythrocyte mean corpuscular hemoglobin (mass per erythrocyte) 30 pg 25-34 Automated erythrocyte mean corpuscular hemoglobin concentration measurement ( mass/volume) 32 g/dL 32-36 Automated erythrocyte distribution width ratio 13.1 % 10.0-14.5 Automated blood platelet count (count/volume) 229 10*3/uL 130-400 Automated blood platelet mean volume measurement 10.5 [foz_us] 7.4-10.4 Automated blood neutrophils/100 leukocytes 74 % 42-75 Automated blood lymphocytes/100 leukocytes 17 % 12-44 Blood monocytes/100 leukocytes 8 % 0-12 Automated blood eosinophils/100 leukocytes 1 % 0-10 Automated blood basophils/100 leukocytes 0 % 0-10 Blood neutrophils automated count (number/volume) 9.8 10*3 1.8-7.8 Blood lymphocytes automated count (number/volume) 2.3 10*3 1.0-4.0 Blood monocytes automated count (number/volume) 1.0 10*3 0.0-1.0 Automated eosinophil count 0.1 10*3/uL 0.0-0.3 Automated blood basophil count (count/volume) 0.0 10*3/uL 0.0-0.1 Comprehensive metabolic panel - 02/17/17 20:25 Serum or plasma sodium measurement (moles/volume) 141 mmol/L 135-145 Serum or plasma potassium measurement (moles/volume) 4.0 mmol/L 3.6-5.0 Serum or plasma chloride measurement (moles/volume) 104 mmol/L 98-107 Carbon dioxide 27 mmol/L 21-32 Serum or plasma anion gap determination (moles/volume) 10 mmol/L 5-14 Serum or plasma urea nitrogen measurement (mass/volume) 13 mg/dL 7-18 Serum or plasma creatinine measurement (mass/volume) 0.80 mg/dL 0.60-1.30 Serum or plasma urea nitrogen/creatinine mass ratio 16 NRG Serum or plasma creatinine measurement with calculation of estimated glomerular filtration rate > NRG Serum or plasma glucose measurement (mass/volume) 127 mg/dL 70-105 Serum or plasma calcium measurement (mass/volume) 9.6 mg/dL 8.5-10.1 Serum or plasma total bilirubin measurement (mass/volume) 0.4 mg/dL 0.1-1.0 Serum or plasma alkaline phosphatase measurement (enzymatic activity/volume) 100 U/L 40-136 Serum or plasma aspartate aminotransferase measurement (enzymatic activity/ volume) 14 U/L 5-34 Serum or plasma alanine aminotransferase measurement (enzymatic activity/volume ) 17 U/L 0-55 Serum or plasma protein measurement (mass/volume) 7.8 g/dL 6.4-8.2 Serum or plasma albumin measurement (mass/volume) 4.1 g/dL 3.2-4.5 Encounters ACCT No. Visit Date/Time Discharge Status Pt. Type Provider Facility Loc./Unit Complaint [id number] 04/02/2017 08:26:00 04/02/2017 23:59:59 CLS Outpatient FCO SANCHEZ MD [facility] RAD ROUTINE [id number] 03/26/2017 10:28:00 03/26/2017 23:59:59 CLS Outpatient JIM DUNLAP MD [facility] RAD FOLLOW UP [id number] 02/17/2017 18:03:00 02/17/2017 21:23:00 DIS Emergency MEL LIU MD [facility] ER R SIDE PAIN [id number] 05/30/2016 15:37:00 05/30/2016 16:27:00 DIS Emergency ELYSSA NELSON APRN [facility] ER LEFT WRIST PAIN FROM INJ [id number] 03/27/2016 08:32:00 03/27/2016 23:59:59 CLS Outpatient FCO SANCHEZ MD [facility] RAD SCREENING [id number] 11/23/2015 15:30:00 11/23/2015 23:59:59 CLS Preadmit JIM DUNLAP MD [facility] CARD PALPITATIONS [id number] 08/24/2015 15:02:00 11/22/2015 00:01:00 DIS Outpatient JIM DUNLAP MD [facility] CARD PALPITATIONS [id number] 03/13/2015 14:24:00 03/13/2015 23:59:59 CLS Outpatient FCO SANCHEZ MD [facility] RAD SCREENING [id number] 03/08/2014 08:41:00 03/08/2014 23:59:59 CLS Outpatient FCO SANCHEZ MD [facility] RAD SCREENING [id number] 04/23/2013 09:52:00 04/23/2013 23:59:59 CLS Outpatient JIM DUNLAP MD [facility] RAD SNF MEDICATION USE [id number] 03/03/2013 15:08:00 03/03/2013 23:59:59 CLS Outpatient FCO SANCHEZ MD [facility] RAD SCREENING
--- OUTSIDE RECORDS SUMMARY | 2017-06-12 12:33 | XMS REPORT | Clinical Summary ---
Author Author [facility] Organization [facility] Address Unknown Phone Unavailable Care Team Providers Care Edge Polisher Name Role Phone Ghassan Herron MD Unavailable No Pcp, Na PCP Unavailable Source Comments Some departments are not documenting in the electronic medical record. If you do not see the information that you expected, contact Release of Information in the Health Information Management department at [phone] for further assistance in locating additional records.[facility] Allergies Active Allergy Reactions Severity Noted Date Comments Caffeine SEE COMMENTS Low 10/10/2014 Makes the pt heart skip a beat Codeine High 12/15/2002 Allergy recorded in SMS: CODIENE~Reactions: HIVES Phenytoin Sodium Extended High 12/15/2002 Allergy recorded in SMS: Dilantin~Reactions: ANAPHYLAXIS Sulfa (Sulfonamide High 12/15/2002 Allergy recorded in SMS: Antibiotics) Sulfa~Reactions: ANAPHYLAXIS Tetracycline High 12/15/2002 Allergy recorded in SMS: TETRACYCLINE~Reactions: HIVES Current [...] Nonintractable generalized idiopathic epilepsy without status epilepticus ([facility]) Social History Tobacco Use Types Packs/Day Years Used Date Never Smoker Smokeless Tobacco: Never Used Alcohol Use Drinks/Week oz/Week Comments Yes 0 Standard 0.0 rare drinks or equivalent Sex Assigned at Date Recorded Not on file Last Filed Vital Signs Vital Sign Reading Time Taken Blood Pressure 137/73 06/07/2016 2:40 PM DOOR OPENER Pulse 67 06/07/2016 2:40 PM DOOR OPENER Temperature - - Respiratory Rate - - Oxygen Saturation - - Inhaled Oxygen - - Concentration Weight 90.7 kg (200 lb) 06/07/2016 2:40 PM DOOR OPENER Height 167.6 cm (5' 6") 06/07/2016 2:40 PM DOOR OPENER Body Mass Index 32.28 06/07/2016 2:40 PM DOOR OPENER Plan of Treatment Health Maintenance Due Date Last Done Comments HEPATITIS C SCREENING 1958 PHYSICAL (COMPREHENSIVE) 1965 EXAM PERTUSSIS VACCINE 1969 TETANUS VACCINE 08/20/1975 CERVICAL CANCER SCREENING 1988 BREAST CANCER SCREENING 1998 COLORECTAL CANCER 2008 SCREENING INFLUENZA VACCINE 11/26/2016 Results Not on filefrom Last 3 Months
== END 2017-06-09 14:39 | disposition home or self-care (01) ==
LOC: EDUNIT# 13:25 → ER 13:27
DX: S62.111A Displaced fracture of triquetrum [cuneiform] bone, right wrist, initial encounter for closed fracture (principal); F32.9 Major depressive disorder, single episode, unspecified; I10 Essential (primary) hypertension; K21.9 Gastro-esophageal reflux disease without esophagitis; Z87.442 Personal history of urinary calculi; Z90.89 Acquired absence of other organs; Z88.2 Allergy status to sulfonamides; Z88.8 Allergy status to other drugs, medicaments and biological substances; Z88.5 Allergy status to narcotic agent; W00.0XXA Fall on same level due to ice and snow, initial encounter
CPT/HCPCS: 73110; 99283

== ENCOUNTER → 2018-04-03 | Outpatient (CLI) | payer OTHER ==
[~2018-04-03] MED LIST changes: +ACHD5005 PO
--- NOTE | 2018-04-03 10:05 | Diagnostic Imaging Report ---
INDICATION: Routine screening. COMPARISON: 04/02/2017 and 03/27/2016. TECHNIQUE: 2D and 3D bilateral screening mammography was performed with CAD. FINDINGS: Both breasts are heterogeneously dense, limiting the sensitivity of mammography. Benign circumscribed nodular densities in the upper outer right breast appear stable. No new mass or malignant appearing microcalcifications are seen. The axillae are unremarkable. IMPRESSION: No mammographic features suspicious for malignancy are identified. ACR BI-RADS Category 2: Benign findings. Result letter will be mailed to the patient. Note: At least 10% of breast cancer is not imaged by mammography. Dictated by: Dictated on workstation # [id number]
== END ==
LOC: RAD 08:39
PROVIDERS: ATTEND Obstetrics & Gynecology
DX: Z12.31 Encounter for screening mammogram for malignant neoplasm of breast (principal)
CPT/HCPCS: 77067

== ENCOUNTER → 2018-08-31 | Outpatient (CLI) | payer OTHER ==
--- NOTE | 2018-08-31 15:36 | Diagnostic Imaging Report ---
INDICATION: Knee pain. COMPARISON: None. FINDINGS: Three views of the right knee joint demonstrate no acute fracture or dislocation. No focal osseous lesions are seen. No significant joint effusion is seen. The surrounding soft tissue structures are unremarkable. There are no radiopaque foreign bodies. IMPRESSION: 1. No acute fractures or dislocations of the right knee joint. Dictated by: Dictated on workstation # [id number]
== END ==
LOC: RAD 15:13
PROVIDERS: ATTEND Internal Medicine
DX: M25.561 Pain in right knee (principal)
CPT/HCPCS: 73562

== ENCOUNTER → 2019-04-07 | Outpatient (CLI) | payer OTHER ==
--- NOTE | 2019-04-07 09:52 | Diagnostic Imaging Report ---
INDICATION: Screening. TECHNIQUE: The current study was also evaluated with a Computer Aided Detection (CAD) system. 3-D Tomographic imaging was also performed. COMPARISON: 04/03/2018, 04/02/2017, and 03/27/2016. FINDINGS: There are scattered fibroglandular densities bilaterally. There is an unchanged cluster of nodular densities in the lateral right breast. There are a few benign type calcifications. There is no new dominant mass, spiculated lesion, or suspicious calcification identified. The skin, nipples, and axillae are unremarkable. IMPRESSION: Benign findings. ACR BI-RADS Category 2: Benign findings. Result letter will be mailed to the patient. Note: At least 10% of breast cancer is not imaged by mammography. Dictated by: Dictated on workstation # [id number]
== END ==
LOC: RAD 07:37
PROVIDERS: ATTEND Obstetrics & Gynecology
DX: Z12.31 Encounter for screening mammogram for malignant neoplasm of breast (principal)
CPT/HCPCS: 77067

== ENCOUNTER → 2019-05-05 | Outpatient (CLI) | payer OTHER ==
[~2019-05-05] MED LIST changes: +TRM50T PO
== END ==
LOC: CARD 08:34
PROVIDERS: ATTEND Internal Medicine Cardiovascular Disease
DX: I49.1 Atrial premature depolarization (principal); I49.3 Ventricular premature depolarization; R00.2 Palpitations; I10 Essential (primary) hypertension; R06.09 Other forms of dyspnea; I34.1 Nonrheumatic mitral (valve) prolapse
CPT/HCPCS: 93306

== ENCOUNTER → 2019-05-12 | Outpatient (CLI) | payer OTHER | LOC: CARD 13:46 | PROVIDERS: ATTEND Internal Medicine Cardiovascular Disease | DX: I34.1 Nonrheumatic mitral (valve) prolapse (principal); I10 Essential (primary) hypertension; I49.1 Atrial premature depolarization; I49.3 Ventricular premature depolarization; R00.2 Palpitations | CPT/HCPCS: 93351 ==

== ENCOUNTER → 2019-06-08 | Outpatient (CLI) | payer OTHER ==
--- NOTE | 2019-06-08 16:43 | Diagnostic Imaging Report ---
INDICATION: Cough and wheezing. EXAM: PA and lateral views of the chest were obtained. FINDINGS: The heart size, mediastinal configuration, and pulmonary vascularity are within normal limits. There is no pleural effusion, pneumothorax, or pneumonia. The osseous structures are unremarkable. IMPRESSION: No acute cardiopulmonary abnormality. Dictated by: Dictated on workstation # [id number]
== END ==
LOC: RAD 16:21
PROVIDERS: ATTEND Nurse Practitioner
DX: R05 Cough (principal); R06.2 Wheezing
CPT/HCPCS: 71046

== ENCOUNTER 2019-10-31 20:35 | Emergency (ER) | payer OTHER ==
[~2019-10-31] VITALS: Ht 167.6 cm; Wt 88.5 kg
[2019-10-31 20:42] VITALS: BP 165/101
--- NOTE | 2019-10-31 20:54 | ED General ---
General Chief Complaint: Exposure Stated Complaint: POOL CHEMICAL EXPOSURE/THROAT DISCOMFORT Nursing Triage Note: PT AMBULATE TO ROOM 07 WITHOUT DIFFICULTY WITH C/O INHALATION EXPOSURE OF POOL CHEMICALS. Nursing Sepsis Screen: No Definite Risk Source of Information: Patient Exam Limitations: No Limitations History of Present Illness Date Seen by Provider: Oct 31, 2019 Time Seen by Provider: 20:50 Initial Comments To ER by private vehicle with reports of inhalation of Pool shock fumes about 20 minutes prior to arrival. She was mixing up Pool shock, 2 different ingredients in a bucket using a metal stirring rods. She left alone for a few minutes and came back to it and noticed it to be bubbling out the top. She had her shirt pulled up over her face but when it slid down and she inhaled some and immediately had burning eyes, now has an irritated sensation in her throat and the need to clear her throat. No cough and no shortness of breath. Allergies and Home Medications Allergies Coded Allergies: Phenytoin Sodium Extended (Unverified Allergy, Unknown, 06/07/16) Sulfa (Sulfonamide Antibiotics) (Unverified Allergy, Unknown, 06/07/16) oxcarbazepine (Unverified Allergy, Unknown, 08/27/10) phenytoin sodium (Unverified Allergy, Unknown, 06/07/16) tetracycline (Unverified Allergy, Unknown, 06/07/16) codeine (Unverified Adverse Reaction, Intermediate, TACHYCARDIA, "MY HEART RACES", 08/27/10) Home Medications Ciprofloxacin HCl 500 Mg Tablet, 500 MG PO BID Prescribed by: MEL CISNEROS on 02/17/172118 Phenazopyridine HCl 200 Mg Tablet, 1 TAB PO TID PRN for PAIN-MILD TO MODERATE Prescribed by: MEL CISNEROS on 02/17/172118 Tramadol HCl 50 Mg Tablet, 50 MG PO Q4H PRN for PAIN-MODERATE TO SEVERE Prescribed by: TAMARA ALEMAN on 06/09/17 1426 Patient Home Medication List Home Medication List Reviewed: Yes Review of Systems Review of Systems Constitutional: see HPI EENTM: see HPI Respiratory: no symptoms reported Cardiovascular: no symptoms reported Genitourinary: no symptoms reported Musculoskeletal: see HPI Skin: no symptoms reported Psychiatric/Neurological: No Symptoms Reported Hematologic/Lymphatic: No Symptoms Reported Past Formhqd-Qlhykk-Pdyllg Hx Patient Social History Alcohol Use: Rarely Uses Recreational Drug Use: No Smoking Status: Never a Smoker 2nd Hand Smoke Exposure: No Recent Foreign Travel: No Contact w/Someone Who Travel: No Recent Infectious Disease Expo: No Recent Hopitalizations: No Physical Abuse: No Sexual Abuse: No Mistreated: No Fear: No Immunizations Up To Date Tetanus Booster (TDap): Unknown Seasonal Allergies Seasonal Allergies: No Past Medical History Surgeries: Yes Bladder Surgery, Hysterectomy, Tonsillectomy Respiratory: Yes (BENIGN LUNG NODULE) Cardiac: Yes (MITRAL VALVE PROLAPSE) Hypertension Neurological: No Reproductive Disorders: No ENVIRONMENT ARTIST History: Hysterectomy Sexually Transmitted Disease: No Genitourinary: Yes Kidney Stones Gastrointestinal: Yes Gastroesophageal Reflux Musculoskeletal: Yes (CHRONIC PAIN IN HER FEET) Arthritis Endocrine: No HEENT: No Cancer: No Psychosocial: Yes Depression Integumentary: No Blood Disorders: No Family Medical History No Pertinent Family Hx, Cancer Physical Exam Vital Signs Vital Signs - First Documented 10/31/19 20:42 Temp 36.7 Pulse 92 Resp 18 B/P (MAP) 165/101 (122) O2 Delivery Room Air Capillary Refill : Less Than 3 Seconds Height, Weight, BMI Height: 5'6.00" Weight: 197lbs. 0.0oz. 89.474362kg; 31.00 BMI Method:Stated General Appearance: No Apparent Distress, WD/WN, Other (no drooling, swallows her own secretions, no cough. Oxygen saturation 97% on room air. Heart rate 85. No stridor no wheezing on auscultation of the lungs no crackles) Eyes: Bilateral Eye Normal Inspection, Bilateral Eye PERRL, Bilateral Eye EOMI HEENT: PERRL/EOMI, TMs Normal Respiratory: No Accessory Muscle Use, No Respiratory Distress Cardiovascular: Regular Rate, Rhythm, Normal Peripheral Pulses Gastrointestinal: Normal Bowel Sounds, Non Tender, Soft Extremity: Normal Capillary Refill, Normal Inspection Neurologic/Psychiatric: Alert, Oriented x3 Skin: Normal Color, Warm/Dry Progress/Results/Core Measures Suspected Sepsis Recent Fever Within 48 Hours: No Infection Criteria Present: None New/Unexplained Altered Menta: No Sepsis Screen: No Definite Risk SIRS Temperature: Pulse: 92 Respiratory Rate: 18 Blood Pressure 165 /101 Mean: 122 Results/Orders My Orders Orders - ELYSSA NELSON APRN Chest Pa/Lat (2 View) (10/31/19 21:05) Vital Signs/I&O 10/31/19 20:42 Temp 36.7 Pulse 92 Resp 18 B/P (MAP) 165/101 (122) O2 Delivery Room Air Capillary Refill : Less Than 3 Seconds Blood Pressure Mean: 122 Departure Communication (Admissions) 2150-is still symptom free oxygen saturation 97% room air feeling better at this time, less anxious. No cough no shortness of breath and less clearing her throat. Chest x-ray is clear. 10:00 will be 1.5 hours post exposure, at that time will discharge to home if she remains asymptomatic. Given that she has the sensation to clear her throat on arrival but really no cough or shortness of breath, suspect that this was an inhalation injury confined to the upper airways. Impression Primary Impression: Inhalation injury due to chemical Disposition: 01 HOME, SELF-CARE Condition: Stable Departure-Patient Inst. Decision time for Depature: 20:54 Referrals: JIM DUNLAP MD (PCP/Family) Primary Care Physician Patient Instructions: NO INSTRUCTIONS GIVEN Add. Discharge Instructions: 1. Return to ER for any shortness of breath or cough or other concerns. All discharge instructions reviewed with patient and/or family. Voiced understanding. ELYSSA NELSON QUARTER INSPECTOR Oct 31, 2019 20:54
--- NOTE | 2019-10-31 21:20 | Diagnostic Imaging Report ---
INDICATION: Inhalational exposure to pool chemicals. COMPARISON: 06/08/2019. TECHNIQUE: Two radiographs of the chest dated October 31, 2019. FINDINGS: The cardiac silhouette and pulmonary vasculature within normal limits. The lungs are clear without focal pulmonary opacity. No pleural effusion. No pneumothorax. Chronic mid shaft left clavicular fracture. No acute osseous abnormality. IMPRESSION: No acute cardiopulmonary abnormality. Dictated by: Dictated on workstation # [id number]
== END 2019-10-31 22:07 | disposition home or self-care (01) ==
LOC: EDUNIT# 20:35 → ER 20:37
DX: J02.9 Acute pharyngitis, unspecified (principal); T59.891A Toxic effect of other specified gases, fumes and vapors, accidental (unintentional), initial encounter; Z88.2 Allergy status to sulfonamides; Z88.1 Allergy status to other antibiotic agents; Z88.5 Allergy status to narcotic agent; Z88.8 Allergy status to other drugs, medicaments and biological substances; I10 Essential (primary) hypertension; K21.9 Gastro-esophageal reflux disease without esophagitis; M19.90 Unspecified osteoarthritis, unspecified site; F32.9 Major depressive disorder, single episode, unspecified; I34.1 Nonrheumatic mitral (valve) prolapse
CPT/HCPCS: 71046

== ENCOUNTER → 2020-03-01 | Outpatient (CLI) | payer OTHER | LOC: LABNPT 06:03 | PROVIDERS: ATTEND Physician Assistant | DX: Z53.9 Procedure and treatment not carried out, unspecified reason (principal) ==

== ENCOUNTER 2020-03-04 18:22 | Emergency (ER) | payer OTHER ==
[~2020-03-04] VITALS: Ht 167.7 cm; Wt 89.8 kg
--- NOTE | 2020-03-04 18:50 | ED General ---
General Chief Complaint: Dizziness/Syncope Stated Complaint: DIZZY Nursing Triage Note: PT AMBULATE TO ROOM 01 WITH C/O DIZZYNESS. PT STATES WAS SEEN BY PCP X5 DAYS AGO AND TREATED FOR INNER EAR INFECTING AND GIVEN ABX. PT STATES THE DIZZYNESS HAS NOT INPROVED. PT REPORTS SHE CONTACTED PCP ON FRIDAY AND WAS TOLD TO GIVE THE ABX "A CHANCE TO WORK." PT REPORTS N/V. DENIES DIARRHEA. Nursing Sepsis Screen: No Definite Risk History of Present Illness Date Seen by Provider: Mar 04, 2020 Time Seen by Provider: 18:40 Initial Comments This is a 59-year-old female who presents to the ER with complaints of dizziness, nausea and vomiting. Reports she's been having intermittent episodes of dizziness for a month. Describes as room spinning around her. She was evaluated and treated by her primary care provider on Friday with upper respiratory infection and placed on Cefdinir. States that episodes of dizziness are intermittent and seemed to worsen after she instilled Debrox and performed warm water irrigation to bilateral ears. Had one episode of emesis upon ED arrival due to severity of vertigo. Denies fevers, chills, cough, shortness of breath, chest pain, nausea, vomiting, diarrhea, abdominal pain. Instantly she notes that vertigo began shortly after starting Norvasc. Allergies and Home Medications Allergies Coded Allergies: Phenytoin Sodium Extended (Unverified Allergy, Unknown, 06/07/16) Sulfa (Sulfonamide Antibiotics) (Unverified Allergy, Unknown, 06/07/16) oxcarbazepine (Unverified Allergy, Unknown, 08/27/10) phenytoin sodium (Unverified Allergy, Unknown, 06/07/16) tetracycline (Unverified Allergy, Unknown, 06/07/16) codeine (Unverified Adverse Reaction, Intermediate, TACHYCARDIA, "MY HEART RACES", 08/27/10) Home Medications Ciprofloxacin HCl 500 Mg Tablet, 500 MG PO BID Prescribed by: MEL CISNEROS on 02/17/172118 Meclizine HCl 25 Mg Tablet, 25 MG PO Q6H PRN for DIZZINESS Prescribed by: PURVI EVANS on 03/04/202001 Phenazopyridine HCl 200 Mg Tablet, 1 TAB PO TID PRN for PAIN-MILD TO MODERATE Prescribed by: MEL CISNEROS on 02/17/172118 Tramadol HCl 50 Mg Tablet, 50 MG PO Q4H PRN for PAIN-MODERATE TO SEVERE Prescribed by: TAMARA ALEMAN on 06/09/17 1426 Patient Home Medication List Home Medication List Reviewed: Yes Review of Systems Review of Systems Constitutional: see HPI EENTM: see HPI Respiratory: no symptoms reported Cardiovascular: no symptoms reported Gastrointestinal: no symptoms reported Genitourinary: no symptoms reported Musculoskeletal: no symptoms reported Skin: no symptoms reported Psychiatric/Neurological: No Symptoms Reported Hematologic/Lymphatic: No Symptoms Reported Immunological/Allergic: no symptoms reported Past Nwxiezt-Bcwwis-Qsmlqy Hx Patient Social History Alcohol Use: Denies Use Recreational Drug Use: No Smoking Status: Never a Smoker 2nd Hand Smoke Exposure: No Recent Foreign Travel: No Contact w/Someone Who Travel: No Recent Infectious Disease Expo: No Recent Hopitalizations: No Physical Abuse: No Sexual Abuse: No Mistreated: No Fear: No Immunizations Up To Date Tetanus Booster (TDap): Unknown Seasonal Allergies Seasonal Allergies: No Past Medical History Surgeries: Yes Bladder Surgery, Hysterectomy, Tonsillectomy Respiratory: Yes (BENIGN LUNG NODULE) Cardiac: Yes (MITRAL VALVE PROLAPSE) Hypertension Neurological: No Reproductive Disorders: No 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 0.0oz. 89.119130iw; 31.00 BMI Method:Stated General Appearance: No Apparent Distress, WD/WN Eyes: Bilateral Eye Normal Inspection, Bilateral Eye PERRL, Bilateral Eye EOMI HEENT: PERRL/EOMI, Pharynx Normal, Other (Unable to visualize left TM due to cerumen. Right TM yan, no bulging or retraction. Fluid noted behind TM. ) Neck: Full Range of Motion, Normal Inspection, Non Tender, Supple Respiratory: Chest Non Tender, Lungs Clear, Normal Breath Sounds, No Accessory Muscle Use, No Respiratory Distress Cardiovascular: Regular Rate, Rhythm, Normal Peripheral Pulses Gastrointestinal: Normal Bowel Sounds, Non Tender, Soft Neurologic/Psychiatric: Alert, Oriented x3, No Motor/Sensory Deficits, Normal Mood/Affect, Other (No gross neurological deficits.) Skin: Normal Color, Warm/Dry Progress/Results/Core Measures Suspected Sepsis Recent Fever Within 48 Hours: No Infection Criteria Present: None New/Unexplained Altered Menta: No Sepsis Screen: No Definite Risk SIRS Temperature: Pulse: 86 Respiratory Rate: 19 Laboratory Tests 03/04/20 18:50: White Blood Count 11.0 Blood Pressure 190 /106 Mean: 134 Laboratory Tests 03/04/20 18:50: Creatinine 0.79, Platelet Count 294, Total Bilirubin 0.2 Results/Orders Lab Results Laboratory Tests Test 03/04/20 18:50 Range/Units White Blood Count 11.0 4.3-11.0 10^3/uL Red Blood Count 4.67 3.80-5.11 10^6/uL Hemoglobin 13.8 11.5-16.0 g/dL Hematocrit 44 35-52 % Mean Corpuscular Volume 94 80-99 fL Mean Corpuscular Hemoglobin 30 25-34 pg Mean Corpuscular Hemoglobin Concent 32 32-36 g/dL Red Cell Distribution Width 13.0 10.0-14.5 % Platelet Count 294 130-400 10^3/uL Mean Platelet Volume 10.6 9.0-12.2 fL Immature Granulocyte % (Auto) 1 % Neutrophils (%) (Auto) 45 42-75 % Lymphocytes (%) (Auto) 44 12-44 % Monocytes (%) (Auto) 7 0-12 % Eosinophils (%) (Auto) 2 0-10 % Basophils (%) (Auto) 1 0-10 % Neutrophils # (Auto) 5.0 1.8-7.8 10^3/uL Lymphocytes # (Auto) 4.9 H 1.0-4.0 10^3/uL Monocytes # (Auto) 0.8 0.0-1.0 10^3/uL Eosinophils # (Auto) 0.2 0.0-0.3 10^3/uL Basophils # (Auto) 0.1 0.0-0.1 10^3/uL Immature Granulocyte # (Auto) 0.1 0.0-0.1 10^3/uL Sodium Level 143 135-145 MMOL/L Potassium Level 3.7 3.6-5.0 MMOL/L Chloride Level 104 98-107 MMOL/L Carbon Dioxide Level 25 21-32 MMOL/L Anion Gap 14 5-14 MMOL/L Blood Urea Nitrogen 10 7-18 MG/DL Creatinine 0.79 0.60-1.30 MG/DL Estimat Glomerular Filtration Rate > 60 BUN/Creatinine Ratio 13 Glucose Level 147 H 70-105 MG/DL Calcium Level 9.3 8.5-10.1 MG/DL Corrected Calcium 9.1 8.5-10.1 MG/DL Total Bilirubin 0.2 0.1-1.0 MG/DL Aspartate Amino Transf (AST/SGOT) 19 5-34 U/L Alanine Aminotransferase (ALT/SGPT) 28 0-55 U/L Alkaline Phosphatase 88 40-136 U/L Total Protein 7.5 6.4-8.2 GM/DL Albumin 4.2 3.2-4.5 GM/DL My Orders Orders - PURVI EVANS [employer] Cbc With Automated Diff (03/04/20 18:46) Comprehensive Metabolic Panel (03/04/20 18:46) Ekg Tracing (03/04/20 18:46) Ct Head Wo (03/04/20 18:46) Ed Iv/Invasive Line Start (03/04/20 18:46) Meclizine Tablet (Antivert Tablet) (03/04/20 19:15) Rx-Ondansetron Po (Rx-Zofran Po) (03/04/20 20:11) Rx-Ondansetron Po (Rx-Zofran Po) (03/04/20 20:11) Medications Given in ED Current Medications Medications Dose Ordered Sig/Michelle Route Start Time Stop Time Status Last Admin Dose Admin Meclizine HCl 25 mg ONCE ONCE PO 03/04/20 19:15 03/04/20 19:16 DC 03/04/20 19:21 25 MG Vital Signs/I&O 03/04/20 03/04/20 18:29 20:10 Temp 35.9 Pulse 86 71 Resp 19 17 B/P (MAP) 190/106 (134) 149/84 Pulse Ox 98 O2 Delivery Room Air Room Air Capillary Refill : Less Than 3 Seconds Blood Pressure Mean: 134 Progress Note : Progress Note Reports history of headache and vertigo as well as episode of emesis. Anticoagulation includes baby aspirin daily. Note OTC medications reported. Will obtain basic labs, EKG, CT head without contrast. No gross neurological deficits noted during exam, which is reassuring. CT head is negative for any acute diagnosis. Was given meclizine 25 mg and reported vertigo no longer present. Reviewed plan of care with her and she is agreeable with plan. ECG Initial ECG Rhythm: Normal Sinus Diagnostic Imaging Diagonstic Imaging: CT Plain Films/CT/US/NM/MRI: head Comments NAME: JENIFER KOVACS MED REC#: [id number] PT STATUS: REG ER : 1960 PHYSICIAN: PURVI EVANS APRN ADMIT DATE: 03/04/20/ER Draft Date of Exam:03/04/20 CT HEAD WO PROCEDURE: CT head without contrast. TECHNIQUE: Multiple contiguous axial images were obtained through the brain without the use of intravenous contrast. Auto Exposure Controls were utilized during the CT exam to meet ALARA standards for radiation dose reduction. INDICATION: Dizziness, headache, vomiting. FINDINGS: The ventricles are normal in size, shape and position. There is no acute parenchymal hemorrhage, edema or mass. There is no extra-axial mass or hemorrhage. There is no bony abnormality. IMPRESSION: No acute abnormality is seen. Dictated on workstation # [id number] Dict: 03/04/201914 Trans: 03/04/201918 [facility] [id number] Interpreted by: MARTÍNEZ MUIR MD Electronically signed by: Departure Impression Primary Impression: Vertigo Disposition: 01 HOME, SELF-CARE Condition: Improved Departure-Patient Inst. Decision time for Depature: 19:34 Referrals: JIM DUNLAP MD (PCP/Family) Primary Care Physician Patient Instructions: Vertigo (a Type of Dizziness) (DC) Add. Discharge Instructions: Plan: 1. Follow up with your primary care provider next week if symptoms persist. Discuss use of Norvasc with your primary care provider. 2. Return to ER for any new, concerning, or worsening symptoms. 3. Take Meclizine 25mg every 6 hours as needed for dizziness. 5. Drink plenty of fluids and continue home medications as previously directed. All discharge instructions reviewed with patient and/or family. Voiced understanding. Scripts Meclizine HCl (Meclizine HCl) 25 Mg Tablet 25 MG PO Q6H PRN for DIZZINESS for 7 Days, #30 TAB 0 Refills Prov: PURVI EVANS APRN 03/04/20 Copy Copies To 1: BARBARA PARKER MD, STORMY D APRN Mar 04, 2020 18:50
[2020-03-04 18:56] LABS: BASOPHILS # (AUTO) 0.1 10^3/uL (0.0-0.1); BASOPHILS % (AUTO) 1 % (0-10); EOSINOPHILS # (AUTO) 0.2 10^3/uL (0.0-0.3); EOSINOPHILS % (AUTO) 2 % (0-10); HEMATOCRIT 44 % (35-52); HEMOGLOBIN 13.8 g/dL (11.5-16.0); LYMPHOCYTES # (AUTO) 4.9 10^3/uL (1.0-4.0); LYMPHOCYTES % (AUTO) 44 % (12-44); MEAN CORPUSCULAR HEMOGLOBIN 30 pg (25-34); MEAN CORPUSCULAR HGB CONC 32 g/dL (32-36); MEAN CORPUSCULAR VOLUME 94 fL (80-99); MEAN PLATELET VOLUME 10.6 fL (9.0-12.2); MONOCYTES # (AUTO) 0.8 10^3/uL (0.0-1.0); MONOCYTES % (AUTO) 7 % (0-12); NEUTROPHILS % (AUTO) 45 % (42-75); PLATELET COUNT 294 10^3/uL (130-400)
[2020-03-04 19:04] LABS: ALBUMIN 4.2 GM/DL (3.2-4.5); CHLORIDE 104 MMOL/L (98-107); POTASSIUM 3.7 MMOL/L (3.6-5.0); SODIUM 143 MMOL/L (135-145)
[2020-03-04 19:06] LABS: CALCIUM 9.3 MG/DL (8.5-10.1)
[2020-03-04 19:07] LABS: GLUCOSE 147 MG/DL (70-105); TOTAL PROTEIN 7.5 GM/DL (6.4-8.2)
[2020-03-04 19:08] LABS: BILIRUBIN,TOTAL 0.2 MG/DL (0.1-1.0); CARBON DIOXIDE 25 MMOL/L (21-32)
[2020-03-04 19:10] LABS: ALKALINE PHOSPHATASE 88 U/L (40-136); CREATININE SERUM 0.79 MG/DL (0.60-1.30); GFR ESTIMATED > 60
[2020-03-04 19:11] LABS: BUN/CREATININE RATIO 13
[2020-03-04 19:13] LABS: ALANINE AMINOTRANSFERASE 28 U/L (0-55)
[2020-03-04] MEDS ORDERED: MECLIZINE 25 MG (ANTIVERT) TAB PO ONE (19:15)
--- NOTE | 2020-03-04 19:19 | Diagnostic Imaging Report ---
PROCEDURE: CT head without contrast. TECHNIQUE: Multiple contiguous axial images were obtained through the brain without the use of intravenous contrast. Auto Exposure Controls were utilized during the CT exam to meet ALARA standards for radiation dose reduction. INDICATION: Dizziness, headache, vomiting. FINDINGS: The ventricles are normal in size, shape and position. There is no acute parenchymal hemorrhage, edema or mass. There is no extra-axial mass or hemorrhage. There is no bony abnormality. IMPRESSION: No acute abnormality is seen. Dictated by: Dictated on workstation # [id number]
[2020-03-04] MEDS ORDERED: MECL-149 PO (20:02)
[2020-03-04 20:10] VITALS: BP 149/84
[2020-03-04] MEDS ORDERED: RX-ONDANSETRON 4 MG ODT (ZOFRAN) PPK #4 ONE (20:11)
[2020-03-04] MEDS ORDERED: RX-ONDANSETRON 4 MG ODT (ZOFRAN) PPK #4 PO STA (20:11)
== END 2020-03-04 20:10 | disposition home or self-care (01) ==
LOC: EDUNIT# 18:22 → ER 18:23
DX: R42 Dizziness and giddiness (principal); I10 Essential (primary) hypertension; Z88.8 Allergy status to other drugs, medicaments and biological substances; Z88.2 Allergy status to sulfonamides; Z88.1 Allergy status to other antibiotic agents; Z88.5 Allergy status to narcotic agent
CPT/HCPCS: 36415; 70450; 80053; 85025; 93005

== ENCOUNTER → 2020-04-10 | Outpatient (CLI) | payer OTHER ==
[~2020-04-10] MED LIST changes: +MECL-149 PO
--- NOTE | 2020-04-10 20:54 | Diagnostic Imaging Report ---
INDICATION: Digital mammogram bilateral screening This study was compared to the prior exams of 04/07/19, 04/03/18 and 04/02/17. At this time, there are no current complaints. The current study was also evaluated with a Computer Aided Detection (CAD) system. FINDINGS: The fibroglandular tissue in both breasts is heterogeneously dense. This does limit the sensitivity of this exam. Overall, there does not appear to have been any significant change when compared to the prior study. No primary or secondary sign of malignancy is noted. IMPRESSION: There is no radiographic evidence for malignancy. ACR BI-RADS Category 1: Negative. Result letter will be mailed to the patient. Note: At least 10% of breast cancer is not imaged by mammography. Dictated by: Dictated on workstation # [id number]
== END ==
LOC: RAD 08:15
PROVIDERS: ATTEND Internal Medicine
DX: Z12.31 Encounter for screening mammogram for malignant neoplasm of breast (principal)
CPT/HCPCS: 77063; 77067

== ENCOUNTER 2021-03-07 05:30 | Outpatient (RCR) | payer OTHER ==
[~2021-03-07] VITALS: Ht 167.7 cm; Wt 90.7 kg
[~2021-03-07 05:30] MED LIST changes: +AMLO2.5T4 PO; +ASCO100024 PO; +ASPI-1238 PO; +ATOR10TA66 PO; +CHOL100048 PO; +DIVA-76 PO; +ESCI-2 PO; +L.AC1CAP6 PO; +LOSA100T57 PO; +METF-397 PO; +METO50TA7 PO; +PANT40TA52 PO
== END 2021-03-07 09:08 | disposition home or self-care (01) ==
LOC: PREOP 05:30
PROVIDERS: ATTEND Internal Medicine
DX: Z01.812 Encounter for preprocedural laboratory examination (principal); Z12.11 Encounter for screening for malignant neoplasm of colon; K21.9 Gastro-esophageal reflux disease without esophagitis; Z20.822 Contact with and (suspected) exposure to COVID-19
CPT/HCPCS: 87635

== ENCOUNTER 2021-03-09 10:26 | Day surgery (SDC) | payer OTHER ==
--- NOTE | 2021-03-01 08:22 | HISTORY AND PHYSICAL ---
DATE OF SERVICE: PANENDOSCOPY HISTORY AND PHYSICAL DATE OF ADMISSION: 03/09/2021. HISTORY: The patient is a 60-year-old white female referred by Dr. Park for screening colonoscopy and diagnostic EGD. She reports long-standing history of reflux, but it has gotten worse over the past several months. She reports a lot of belching after meals. She is getting over what sounds like acute diarrheal illness compatible with gastroenteritis with exposure to a grandchild with similar symptoms. She reports a past history of known gallstones. Other than the past week, has had no nausea reporting diarrhea without evidence for blood bright red, melena, chills or fever. She did have some lower intestinal crampy abdominal pain with it. She had undergone an EGD per Dr. Tamayo well over 10 years ago. He recommended surgery at the time due to hiatal hernia. She has had a second opinion with Dr. Guerra who just advised proton pump inhibitor therapy, which she has been on since. She denies change in weight and denies dysphagia. She is not aware of any past history of [place]y's changes, was warned chronic reflux could cause this by Dr. Tamayo. In review of her electronic medical record, her EGD was likely prior to 2005 and there is no history of EGD. PAST MEDICAL HISTORY: Significant for hypertension, hyperlipidemia with no known history of coronary artery disease. She also has a history of insulin resistance, on metformin. She has past history of nephrolithiasis and reported cholelithiasis. 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 FAMILY HISTORY: Father succumbed bladder cancer in his 70s. Mother is still living in her mid 80s as I recall with no health problems. REVIEW OF SYSTEMS: CONSTITUTIONAL: The patient denies no night sweats, chills, fever, change in weight. GASTROINTESTINAL: As noted in the HPI. CARDIOVASCULAR: Denies chest pain, dyspnea on exertion, orthopnea, PND, pedal edema or syncope. PULMONARY: Denies cough, wheezing or shortness of breath. PHYSICAL EXAMINATION: GENERAL: Reveals a pleasant white female, did not appear to be in acute distress, but anxious. VITAL SIGNS: Weight 200 pounds, blood pressure 110/76, heart rate 72 and regular. HEENT: Unremarkable. Sclerae nonicteric. CHEST: Clear to auscultation. CARDIOVASCULAR: Reveals regular rate and rhythm without murmur, S3 or S4. ABDOMEN: Soft, supple without mass, organomegaly or tenderness. Bowel sounds positive. EXTREMITIES: Reveal no cyanosis, clubbing or edema. ASSESSMENT AND PLAN: For refractory gastroesophageal reflux disease, the patient is being set up for EGD and will be undergoing screening colonoscopy as well. Prep instructions with Sutab were given. She is concerned about nausea, so we will premedicate with Zofran Melt tab 4 mg at least 30 minutes prior to each prep dose. Prep instructions were given. Electronic medical record was reviewed. I thank you for the referral of this pleasant lady. Job ID: [id number] DocumentID: [id number] Dictated Date: 02/26/2021 16:30:22 Swatch Paster Date: 02/26/2021 17:07:36 Dictated By: BIB KNIGHT MD MTDD
[~2021-03-09] VITALS: Ht 167.7 cm; Wt 90.7 kg
[2021-03-09] MEDS ORDERED: GLYCOPYRROLATE 0.2 MG/ML (ROBINUL) 2 ML VIAL IJ ONE (10:27)
--- NOTE | 2021-03-09 10:43 | Pre-Op Note & Conscious Sedat ---
Pre-Operative Progress Note H&P Reviewed The H&P was reviewed, patient examined and no changes noted. Date H&P Reviewed: Mar 09, 2021 Time H&P Reviewed: 10:43 Conscious Sedation Pre-Proced ASA Score 2 For ASA 3 and 4: Consider anesthesia and medical clearance. Also, for patients with a history of failed moderate sedation consider anesthesia. Airway Lungs Heart ASA score ASA 1: a normal healthy patient ASA 2: a patient with a mild systemic disease (mid diabetes, controlled hypertension, obesity ASA 3: a patient with a severe systemic disease that limits activity (angina, COPD, prior Myocardial infarction) ASA 4: a patient with an incapacitating disease that is a constant threat to life (CHF, renal failure) ASA 5: a moribund patient not expected to survive 24 hrs. (ruptured aneurysm) ASA 6: a declared brain- patient whose organs are being harvested. For emergent operations, add the letter E after the classification Mallampati Classification Grade 2 Sedation Plan Analgesia, Amnesia, Plan communicated to team members, Discussed options with patient/fam, Discussed risks with patient/fam The patient is an appropriate candidate to undergo the planned procedure, sedation, and anesthesia. The patient immediately re-assessed prior to indication. BIB KNIGHT MD Mar 09, 2021 10:43
[2021-03-09 10:45] VITALS: BP 140/79
[2021-03-09] MEDS ORDERED: LACTATED RINGERS 1,000 ML IV ONE (10:52)
[2021-03-09] MEDS ORDERED: LACTATED RINGERS 1,000 ML IV STA (11:12)
[2021-03-09] MEDS ORDERED: HURRICAINE EXT TUBE (BENZOCAINE) XX PRN (11:15)
[2021-03-09] MEDS ORDERED: LIDOCAINE JELLY 2% 6 ML SYRINGE MM PRN (11:15)
[2021-03-09] MEDS ORDERED: PROPOFOL INJECTION 50 ML IV ONE ×2 (11:27→11:44)
[2021-03-09 12:25] VITALS: BP 101/58
[2021-03-09 12:30] VITALS: BP 93/52
--- NOTE | 2021-03-09 12:30 | Anesthesia-General Post-Op ---
MAC Patient Condition Mental Status/LOC: Same as Preop Cardiovascular: Satisfactory Nausea/Vomiting: Absent Respiratory: Satisfactory Pain: Controlled Complications: Absent Post Op Complications Complications None Follow Up Care/Instructions Patient Instructions None needed. Anesthesiology Discharge Order Discharge Order Patient is doing well, no complaints, stable vital signs, no apparent adverse anesthesia problems. No complications reported per nursing. RAINA WINN CRNA Mar 09, 2021 12:30
[2021-03-09 13:16] VITALS: BP 105/68
--- NOTE | 2021-03-09 13:21 | OPERATIVE REPORT ---
DATE OF SERVICE: PANENDOSCOPY SUMMARY EGD is performed for evaluation of increased reflux symptoms despite proton pump inhibitor therapy with colonoscopy done for screening purposes. DESCRIPTION OF PROCEDURE: The patient was placed in the left lateral decubitus position. The endoscope was inserted in the oral cavity and under direct visualization, esophagus was intubated. The endoscope was passed down the esophagus through the stomach into the second portion of the duodenum. A careful inspection was made as the endoscope was withdrawn. FINDINGS: The posterior pharynx, epiglottis, arytenoid aperture and true and false vocal folds were unremarkable on gross inspection. Proximal, mid and distal esophagus was unremarkable. There is a small hiatal hernia present. There was no evidence for erosive esophagitis. The cardia of the stomach was unremarkable except for several fundal polyps. There were multiple medium to large size fundal appearing polyps in the remainder of the fundus predominantly along the greater curvature. Two of the larger ones were biopsied. The more proximal polyp was more erythematous in nature. No ulcerations were noted. No erosions were noted. There is no evidence for antral gastritis. The pylorus, the pyloric channel, the duodenal bulb and second portion of duodenum were unremarkable. ASSESSMENT: 1. Small hiatal hernia was present without evidence for erosive esophagitis. 2. Multiple fundal appearing polyps were noted as long as there is no evidence for underlying neoplasia would not recommend surveillance EGD. There were no findings on today's EGD to reliably explain this patient's symptoms, which points towards her known cholelithiasis as being a potential culprit. Discussed the importance of portion control and a lower fat diet. We then proceeded with colonoscopy. Prior to undergoing colonoscopy, digital rectal evaluation was performed. Anal sphincter tone was normal and the perianal reflexes intact. No abnormalities were noted on digital inspection of anal canal or distal rectal vault. The colonoscope was then inserted into the rectum and under direct visualization advanced to cecum. The cecum was identified by identification of ileocecal valve and cecal strap. Photographic documentation was obtained. Quality of prep was fair. FINDINGS: There was no evidence for internal or external hemorrhoids. Present in the mid rectum was a 4 mm hyperplastic-appearing sessile polyp. It was biopsied and ablated and submitted for histopathology. Present in the rectosigmoid junction, there was an area of what appeared to be some hemorrhagic mucosa. There was no evidence for ulceration. There was no overt evidence to suggest underlying neoplasia. A biopsy was obtained and submitted for Helicobacter. This may have been related to scope trauma. As this was a technically difficult colonoscopy. Present in the distal sigmoid colon was another 4 mm sessile hyperplastic-appearing polyp. It was biopsied and ablated and submitted for histopathology. The sigmoid colon, descending colon, splenic flexure, transverse colon, hepatic flexure, ascending colon and cecum were unremarkable. ASSESSMENT: Two diminutive hyperplastic appearing 4 mm sessile polyps were removed, one from the mid rectum, the other one from the distal sigmoid colon. There was a small area of hemorrhagic appearing mucosa only noted on the way out, which likely represents scope related trauma at the rectosigmoid junction, biopsy was obtained. As long as there are no surprise on histopathology report, would advocate consideration for repeat screening colonoscopy in 10 years as long as there continues to be no family history for colon cancer. I thank you for the referral of this pleasant lady. See above EGD report. Job ID: [id number] DocumentID: [id number] Dictated Date: 03/09/2021 12:41:21 Recoater Date: 03/09/2021 13:20:53 Dictated By: BIB KNIGHT MD [facility]
== END 2021-03-09 13:17 | disposition home or self-care (01) ==
LOC: ENDO 10:26
PROVIDERS: ATTEND Internal Medicine
DX: Z12.11 Encounter for screening for malignant neoplasm of colon (principal); K62.1 Rectal polyp; K31.7 Polyp of stomach and duodenum; K44.9 Diaphragmatic hernia without obstruction or gangrene; I10 Essential (primary) hypertension; K21.9 Gastro-esophageal reflux disease without esophagitis; E11.9 Type 2 diabetes mellitus without complications; E78.5 Hyperlipidemia, unspecified; F32.A Depression, unspecified; Z79.82 Long term (current) use of aspirin; Z79.899 Other long term (current) drug therapy; Z79.84 Long term (current) use of oral hypoglycemic drugs; Z85.51 Personal history of malignant neoplasm of bladder

== ENCOUNTER → 2021-04-11 | Outpatient (CLI) | payer OTHER ==
--- NOTE | 2021-04-11 10:07 | Diagnostic Imaging Report ---
INDICATION: Routine screening. COMPARISON: 04/10/2020 and 04/07/2019. TECHNIQUE: 2D and 3D bilateral screening mammography was performed with CAD. FINDINGS: Both breasts are heterogeneously dense, limiting the sensitivity of mammography. Benign nodules in the upper outer right breast are stable. No new mass or malignant-appearing microcalcifications are seen. There are benign calcifications present. The axillae are unremarkable. IMPRESSION: No mammographic features suspicious for malignancy are identified. ACR BI-RADS Category 2: Benign findings. Result letter will be mailed to the patient. Note: At least 10% of breast cancer is not imaged by mammography. Dictated by: Dictated on workstation # [id number]
== END ==
LOC: RAD 07:30
PROVIDERS: ATTEND Internal Medicine
DX: Z12.31 Encounter for screening mammogram for malignant neoplasm of breast (principal)
CPT/HCPCS: 77063; 77067

== ENCOUNTER → 2021-12-27 | Outpatient (CLI) | payer OTHER | LOC: INFUSION 09:10 | PROVIDERS: ATTEND Registered Nurse Critical Care Medicine | DX: U07.1 COVID-19 (principal) ==

== ENCOUNTER → 2022-04-12 | Outpatient (CLI) | payer OTHER ==
--- NOTE | 2022-04-12 10:48 | Diagnostic Imaging Report ---
Indication: Routine screening. Comparison is made with prior mammograms 04/11/2021 and 04/10/2020. 2-D and 3-D bilateral screening mammography was performed with CAD. Both breasts are heterogeneously dense, limiting the sensitivity of mammography. Benign nodules upper outer right breast are stable. No new mass or malignant-appearing microcalcifications are seen. Axillae are unremarkable. IMPRESSION: BI-RADS Category 2 No mammographic features suspicious for malignancy are identified. ACR BI-RADS Category 2: Benign findings. Result letter will be mailed to the patient. Note: At least 10% of breast cancer is not imaged by mammography. Dictated by: Dictated on workstation # [id number]
== END ==
LOC: RAD 09:00
PROVIDERS: ATTEND Internal Medicine
DX: Z12.31 Encounter for screening mammogram for malignant neoplasm of breast (principal)
CPT/HCPCS: 77063; 77067